=== PATIENT | female | born 1940 | race Caucasian/White ===

== ENCOUNTER 2025-01-06 17:19 | Inpatient (IN) | payer MEDICARE, MEDICAID, SELFPAY ==
[2025-01-06 17:24] VITALS: BP 198/73; PULSE 70; RESP 20; TEMP 36.7; O2SAT 95
[2025-01-06 17:26] VITALS: BMI 36.6
[2025-01-06 17:47] VITALS: PULSE 86; RESP 20; O2SAT 99; BMI 39.6
--- NOTE | 2025-01-06 17:58 | EKG_ITS ---
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: : 1940 Requested By: Trish Murray Order Number: [id number] Reading MD: Trish Murray Measurements Intervals [place] Rate: 72 P: 53 FL: 161 QRS: -26 QRSD: 94 T: 63 QT: 380 QTc: 417 Interpretive Statements SINUS RHYTHM WITH OCCASIONAL SUPRAVENTRICULAR PREMATURE COMPLEXES BORDERLINE LEFT AXIS DEVIATION [QRS AXIS < -20] MINIMAL VOLTAGE CRITERIA FOR LVH, CONSIDER NORMAL VARIANT [MEETS CRITERIA IN ONE OF: R(aVL), S(V1), R(V5), R(V5/V6)+S(V1)] Compared to ECG 04/21/2023 17:15:03 T-wave abnormality no longer present Possible ischemia no longer present /store/S0/[id number]/ecg/[id number].pdf
--- NOTE | 2025-01-06 18:13 | PD.EDAMS ---
Altered Mental Status RME/HPI General Chief Complaint: Altered Mental Status Stated Complaint: AMS Time Seen by Provider: 01/06/25 18:14 Arrival date/time: 01/06/25 17:19 RME / HPI RME / HPI narrative: Dr. Bragg?s Main ED Evaluation: 84yo female with a history of CVA, CHF, HTN, COPD, DMII BIBA from [facility] presents to the ED for a chief complaint altered mental status. Per EMS, [facility] staff found the patient to be altered at 1600 after the patient was unable to recognize family members. Patient is not on any oxygen at the facility, but was saturating 86% RA here. Patient states she does not know why she's here and does not have any complaints. Evidently, the patient was recently diagnosed with pneumonia and is currently on antibiotics. Related Data Home Medications ?Medication ?Instructions ?Recorded ?Confirmed insulin glargine 100 unit/mL 50 unit subcut HS 12/04/19 04/22/23 subcutaneous solution (Lantus U-100 Insulin) metformin 500 mg tablet 500 mg PO BID 12/04/19 04/22/23 Held on 03/10/23. Instructions: Resume on 03/24/23. After renal panel furosemide 40 mg tablet 40 mg PO QDAY 03/08/23 04/22/23 Held on 03/10/23. Instructions: Resume on 03/24/23. Resume after renal panel gabapentin 100 mg capsule 100 mg PO BID 03/08/23 04/22/23 isosorbide dinitrate 20 mg tablet 20 mg PO QID 03/08/23 04/22/23 sacubitril 49 mg-valsartan 51 mg 1 tab PO BID 03/08/23 04/22/23 tablet (Entresto) Held on 03/10/23. Instructions: Resume on 03/24/23. Resume after Renal panel spironolactone 50 mg tablet 50 mg PO QDAY 03/08/23 03/14/23 Held on 03/10/23. Instructions: Resume on 03/25/23. Please check Renal panel before resuming amlodipine 10 mg tablet 10 mg PO QDAY 03/14/23 04/22/23 hydralazine 25 mg tablet 25 mg PO TID 03/14/23 04/22/23 Previous Rx's ?Medication ?Instructions ?Recorded amoxicillin 500 mg capsule 500 mg PO BID #14 caps 04/22/23 Allergies Allergy/AdvReac Type Severity Reaction Status Date / Time No Known Allergies Allergy Verified 12/04/19 15:05 Review of Systems Review of Systems Systems Reviewed: All systems reviewed, normal except as documented ED Exam Narrative Physical exam: GENERAL APPEARANCE: alert and oriented x 4, obese, well-developed, well-nourished, no acute distress VITALS: All vitals were reviewed and the pulse ox is 95% on 2L/NC, which is abnormal according to my interpretation. HEENT: Normocephalic, atraumatic; pupils equal, round, reactive to light; EOMI; mucous membranes pink, moist; oropharynx clear NECK: Supple LUNGS: CTABL; no wheezes, no rales, no rhonchi HEART: Regular rate, regular rhythm; normal S1, S2; no murmurs ABDOMEN: non distended; normal BS; soft, no tenderness, no guarding, no rebound; no masses, no organomegaly, no hernia BACK: no CVA tenderness EXTREMITIES: atraumatic; no edema; large patches of macerated skin with evidence of chronic wounds with good healing and spots of honey-colored crusted lesions over the bilateral shins NEUROLOGIC: awake; alert and oriented x4; cranial nerves II-XII grossly intact; no focal sensory or motor deficits PSYCHIATRIC: appropriate mood and affect SKIN: warm, dry, normal color; no rashes Course Course Course Narrative: CXR is ordered for determining the etiology of AMS. 2031: Stroke alert called overhead due to CT head findings. 2035: Spoke with the patient and her family at bedside regarding test results. Any and all questions were answered. Quality Measures Suspected type of Stroke: Unknown at this time Tenecteplase given: Reason(s) TPA not given: Outside the time window not given stroke Orders Category Date Time Status Admit to Inpatient Status Routine Admission 01/06/25 21:18 Active Admit to Inpatient Status Routine Admission 01/06/25 21:36 Active Patient Condition Routine Admission 01/06/25 21:36 Ordered Bedside Blood Glucose ACHS Care 01/06/25 21:43 Active Marketing And Public Relations Manager STAT Care 01/06/25 18:19 Active Continuous Pulse Oximetry STAT Care 01/06/25 18:19 Completed EKG (ED ONLY) *Do not use* NOW Care 01/06/25 17:58 Completed Head of Bed Elevation NOW Care 01/06/25 21:40 Active Insert IV NOW Care 01/06/25 18:19 Active MRI Screening NOW Care 01/06/25 21:48 Active Miscellaneous Nursing Order NOW Care 01/06/25 21:42 Active NIH Stroke Scale now Care 01/06/25 20:32 Active NPO NOW Care 01/06/25 20:32 Active NPO NOW Care 01/06/25 21:44 Active NPO STAT Care 01/06/25 18:19 Active Neuro Check Q4H Care 01/06/25 21:40 Active Notify provider NEEDED Care 01/06/25 21:36 Active Nurse Swallow Screen X1 Care 01/06/25 21:40 Active Nurse Swallow Screen x1 Care 01/06/25 20:32 Active Obtain weight NOW Care 01/06/25 21:36 Active SCD [Sequential Compression Device] QSHIFT Care 01/06/25 21:55 Active Seizure precautions NOW Care 01/06/25 21:40 Active Strict Intake and Output Routine Care 01/06/25 18:19 Ordered Wound Care NOW Care 01/06/25 21:42 Active Consult to Neurology / Tele-Neurology Routine Cons 01/06/25 20:32 Active Referral Physical Therapy Routine Cons 01/06/25 21:40 Active Referral Speech Therapy Routine Cons 01/06/25 21:40 Active Diet Dysphagia 2- Mechanical Altered Diet 01/07/25 Breakfast Active Diet NPO (NOW) Diet 01/06/25 21:44 Active CA echo doppler complete Routine Exams 01/06/25 21:[address] angio stroke protocol Stat Exams 01/06/25 20:[address] head/brain wo con Stat Exams 01/06/25 18:24 Completed EKG (ED Only) Stat Exams 01/06/25 17:58 Draft MR head/brain wo con Stat Exams 01/06/25 Ordered XR chest 1V portable Stat Exams 01/06/25 18:18 Completed Arterial Blood Gas Stat Lab 01/06/25 19:59 Completed B-Type Natriuretic Peptide Stat Lab 01/06/25 18:30 Completed Blood Culture (Lab) Stat Lab 01/06/25 19:00 Received CBC AM DRAW Lab 01/07/25 05:00 Ordered CBC AM DRAW Lab 01/08/25 05:00 Ordered CBC AM DRAW Lab 01/09/25 05:00 Ordered CBC AM DRAW Lab 01/10/25 05:00 Ordered CBC Stat Lab 01/06/25 18:30 Completed CMP [Comprehensive Metabolic Panel] AM DRAW Lab 01/07/25 05:00 Ordered CMP [Comprehensive Metabolic Panel] AM DRAW Lab 01/08/25 05:00 Ordered CMP [Comprehensive Metabolic Panel] AM DRAW Lab 01/09/25 05:00 Ordered CMP [Comprehensive Metabolic Panel] AM DRAW Lab 01/10/25 05:00 Ordered Comprehensive Metabolic Panel Stat Lab 01/06/25 18:30 Completed Free T4 (Free Thyroxine) AM DRAW Lab 01/07/25 05:00 Ordered Hemoglobin A1C [Glycohemoglobin w (eAG)] AM DRAW Lab 01/07/25 05:00 Ordered LDH (Lactate Dehydrogenase) Stat Lab 01/06/25 18:30 Completed Lactate (Lactic Acid) Stat Lab 01/06/25 18:55 Completed Lipase Stat Lab 01/06/25 18:30 Completed Lipid Panel AM DRAW Lab 01/07/25 05:00 Ordered Magnesium AM DRAW Lab 01/07/25 05:00 Ordered Magnesium AM DRAW Lab 01/08/25 05:00 Ordered Magnesium AM DRAW Lab 01/09/25 05:00 Ordered Magnesium AM DRAW Lab 01/10/25 05:00 Ordered Magnesium Stat Lab 01/06/25 18:30 Completed Partial Thromboplastin Time Stat Lab 01/06/25 18:30 Completed Phosphorous AM DRAW Lab 01/07/25 05:00 Ordered Phosphorous AM DRAW Lab 01/08/25 05:00 Ordered Phosphorous AM DRAW Lab 01/09/25 05:00 Ordered Phosphorous AM DRAW Lab 01/10/25 05:00 Ordered Phosphorous Stat Lab 01/06/25 18:30 Completed Procalcitonin Stat Lab 01/06/25 18:30 Completed Prothrombin Time with INR Stat Lab 01/06/25 18:30 Completed Sputum Culture and Gram Stain Stat Lab 01/06/25 21:41 Ordered TSH [Thyroid Stimulating Hormone] AM DRAW Lab 01/07/25 05:00 Ordered Troponin I Stat Lab 01/06/25 18:30 Completed UA, C/S IF [Urinalysis, C/S if Indicated] Stat Lab 01/06/25 18:18 Completed Urine Culture Stat Lab 01/06/25 18:18 Received Acetaminophen Tab [Tylenol Tab] Med 01/06/25 21:36 Active 650 mg PO Q6H PRN Acetaminophen Tab [Tylenol Tab] Med 01/06/25 21:36 Active 650 mg PO Q6H PRN Albuterol/Ipratr Rt Holly [Duoneb Rt Holly] Med 01/07/25 01:00 Active 3 ml INH Q6HRRT Aspirin [Ecotrin] Med 01/07/25 09:00 Active 81 mg PO QDAY Atorvastatin Calcium [Lipitor] Med 01/07/25 21:00 Active 80 mg PO HS Azithromycin Inj [Zithromax Inj] 250 mg Med 01/07/25 21:00 Pending Sodium Chloride 0.9% 250 ml [Ns] 250 ml IV QDAY@2100 Azithromycin Inj [Zithromax Inj] 250 mg Med 01/06/25 22:15 Active Sodium Chloride 0.9% 250 ml [Ns] 250 ml IV X1 Calcium Gluconate 10% Inj Med 01/06/25 21:44 Discontinued 1 gm IV X1 ONE Dextrose 50% Syr [D50w Syringe Abboject] Med 01/06/25 21:42 Active 25 ml IV Q15MIN PRN Dextrose 50% Syr [D50w Syringe Abboject] Med 01/06/25 21:42 Active 50 ml IV Q15MIN PRN Dextrose 50% Syr [D50w Syringe Abboject] Med 01/06/25 21:44 Discontinued 50 ml IV X1 ONE Glucagon Inj Med 01/06/25 21:42 Active 1 mg IM Q15MIN PRN INSULIN LISPRO (AdmeLOG) [HumaLOG] Med 01/07/25 07:30 Active See Protocol SC ACHS Insulin Regular Med 01/06/25 21:44 Discontinued 5 unit IV X1 ONE Labetalol IV [Trandate IV] Med 01/06/25 21:36 Active 10 mg IVP Q6H PRN Ondansetron Inj [Zofran Inj] Med 01/06/25 21:36 Active 4 mg IV Q6H PRN Pantoprazole Inj [Protonix Inj] Med 01/07/25 09:00 Active 40 mg IVP QDAY Sod Polystyrene Sulfon Susp [Kayexalate Susp] Med 01/06/25 21:44 Discontinued 30 gm PO X1 ONE Sodium Chloride 0.9% 1000 ml [Ns] 1,000 ml Med 01/06/25 21:45 Active IV 60 mls/hr Sodium Chloride 0.9% 500 ml [Ns] 500 ml Med 01/06/25 18:20 Discontinued IV 999 mls/hr Sodium Chloride Rt Holly 10% [NS Rt Holly 10%] Med 01/06/25 21:36 Discontinued 5 ml INH X1 ONE cefTRIAXone [Rocephin] 1,000 mg Med 01/07/25 09:00 Active SODIUM CHLORIDE 0.9% (Popper) [NS 0.9% (Popper)] 50 ml IV QDAY cefTRIAXone [Rocephin] 1,000 mg Med 01/06/25 18:20 Discontinued SODIUM CHLORIDE 0.9% (Popper) [NS 0.9% (Popper)] 50 ml IV X1 Code Status Routine Oth 01/06/25 21:36 Ordered Oxygen Delivery NOW RT 01/06/25 18:19 Active Sputum Induction PRN RT 01/06/25 21:45 Ordered Vital Signs Vital signs: Vital Signs Temperature 98.1 F 01/06/25 17:24 Pulse Rate 70 01/06/25 17:24 Respiratory Rate 20 01/06/25 17:24 Blood Pressure 198/73 H 01/06/25 17:24 Pulse Oximetry (%) 95 01/06/25 17:24 Oxygen Delivery Method Nasal Cannula 01/06/25 17:24 Oxygen Flow Rate 2 01/06/25 17:24 Altered Mental Status MDM Narrative MDM Narrative:: Scribe Attestation: 01/06/25 - Minda Juarez am scribing for and in the presence of Dr. Bragg. Patient data External records reviewed:: 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 EKG done at 1804, NSR, rate of 72, left axis deviation, occasional PACs, generalized ST abnormalities, no acute ischemia, according to my interpretation. [facility] Report Signed Patient: BERNADETTE BALTAZAR [facility]. Record#: [id number] Birthdate: 1940 Age/Sex: 84 / F Location: SERX Attending Dr: Ordering Physician: Madi Bragg MD Date of Service: 01/06/25 Procedure(s): XR chest 1V portable Accession Number(s): [id number] cc: Victorino Vega MD; Madi Bragg MD~ Examination: AP chest single view Technique one AP portable upright chest single view Exam date and time: January 06, 2025 1836 hrs. Comparison 12/22/2022 Indications: Coughing today. Findings: No significant cardiac enlargement Ectatic thoracic aorta Mild vascular congestion. Accentuation bronchovascular markings Significant osteopenia Impression: Bronchitis pattern Dictated By: Victorino Vega MD Signed By: <Electronically signed by Victorino Vega MD in OV> 01/06/251902 [facility] Signed Patient: BERNADETTE BALATZAR [facility]. Record#: [id number] Birthdate: 1940 Age/Sex: 84 / F Location: SERX Attending Dr: Ordering Physician: Madi Bragg MD Date of Service: 01/06/25 Procedure(s): CT head/brain wo con Accession Number(s): [id number] cc: Victorino Vega MD; NO PRIMARY/FAMILY,PHYSICIAN; Madi Bragg MD~ Examination: CT brain head without contrast. 2-D sagittal coronal reconstructions Date and time of exam:January 06, 2020 04/04/1988 hours Comparison 12/22/2022 Indications: Onset altered mental status today CTDI: vol (mGy):51.4 DLP: (mGycm):980 Technique: Multiple CT axial sections of the brain have been obtained, 5 mm slice thickness. Contrast has not been administered. 2-D sagittal, coronal reconstructions have been obtained Low dose protocols were performed. One or more of the following dose reduction techniques were used; automated exposure control, adjustment of the mA and/or KV according to patient size, use of iterative reconstruction technique. Findings: No significant ventricular enlargement. Abnormal low density left temporal lobe axial image 26 Intra-axial or extra-axial hemorrhage density is not seen. No mass effect or midline shift Basal cisterns are not remarkable. Fourth ventricle is midline. Cranial vault intact. Impression: Negative for acute hemorrhage, mass effect or midline shift Findings consistent with acute infarct in the left temporal lobe, axial image 26 Recommend brain MRI MRA stroke protocol follow-up Dictated By: Victorino Vega MD Signed By: <Electronically signed by Victorino Vega MD in OV> 01/06/252005 Medications / Prescriptions Medications or Prescriptions considered but not ordered:: none Medication administrations:: Medication Administration History Acetaminophen (Acetaminophen 325 Mg Tablet) 650 mg PO Q6H PRN PRN Reason: PAIN SCALE 1-3 (mild Stop: 02/05/25 21:35 Acetaminophen (Acetaminophen 325 Mg Tablet) 650 mg PO Q6H PRN PRN Reason: Fever >100.4 Stop: 02/05/25 21:35 Albuterol/Ipratropium (Albuterol/Ipratropium (Duoneb) Rt Holly 3 Ml Nebu) 3 ml INH Q6HRRT MATT Stop: 02/06/25 00:59 Aspirin (Aspirin Ec 81 Mg Tabec) 81 mg PO QDAY MATT Stop: 02/06/25 08:59 Atorvastatin Calcium (Atorvastatin Calcium 20 Mg Tablet) 80 mg PO HS MATT Stop: 02/06/25 20:59 Dextrose (Dextrose 50%-Water Inj 50 Ml Syringe) 25 ml IV Q15MIN PRN PRN Reason: BG 50-70 responsive npo pt Stop: 02/05/25 21:41 Dextrose (Dextrose 50%-Water Inj 50 Ml Syringe) 50 ml IV Q15MIN PRN PRN Reason: BG <50 OR BG <70 & pt unresponsive Stop: 02/05/25 21:41 Glucagon (Glucagon Inj 1 Mg Vial) 1 mg IM Q15MIN PRN PRN Reason: BG <70, and no IV access Ceftriaxone Sodium 1,000 mg/ (Sodium Chloride) 50 mls @ 100 mls/hr IV QDAY [facility] Stop: 01/14/25 08:59 Azithromycin 250 mg/ Sodium (Chloride) 250 mls @ 250 mls/hr IV QDAY@2100 [facility] Stop: 01/14/25 20:59 Sodium Chloride (Ns) 1,000 mls @ 60 mls/hr IV .[id number] [facility] Stop: 02/05/25 21:44 Azithromycin 250 mg/ Sodium (Chloride) 250 mls @ 250 mls/hr IV X1 ONE Stop: 01/06/25 23:14 Insulin Human Lispro (Insulin Lispro (Admelog) 1 Unit/0.01 Ml Unit) 0 unit SC [facility]; Protocol Stop: 02/06/25 07:29 Labetalol HCl (Labetalol Inj 5 Mg/Ml Vial 20 Ml) 10 mg IVP Q6H PRN PRN Reason: BP >220/110 Stop: 02/05/25 21:35 Ondansetron HCl (Ondansetron Inj 2 Mg/Ml Inj 2 Ml) 4 mg IV Q6H PRN; Protocol PRN Reason: NAUSEA OR VOMITING Stop: 02/05/25 21:35 Pantoprazole Sodium (Pantoprazole Inj 40 Mg Vial) 40 mg IVP QDAY [facility] Stop: 02/06/25 08:59 Discontinued Medications Calcium Gluconate (Calcium Gluconate 10% Inj 1 Gm/10 Ml Vial) 1 gm IV X1 ONE Stop: 01/06/25 21:45 Dextrose (Dextrose 50%-Water Inj 50 Ml Syringe) 50 ml IV X1 ONE Stop: 01/06/25 21:45 Sodium Chloride (Ns) 500 mls @ 999 mls/hr IV .Q31M ONE Stop: 01/06/25 18:50 Last Infusion: 01/06/25 19:43 Dose: Infused Documented By: Admin: 01/06/25 19:12 Dose: 999 mls/hr Documented By: KG Ceftriaxone Sodium 1,000 mg/ (Sodium Chloride) 50 mls @ 100 mls/hr IV X1 ONE Stop: 01/06/25 18:49 Last Infusion: 01/06/25 19:39 Dose: Infused Documented By: Admin: 01/06/25 19:09 Dose: 100 mls/hr Documented By: KG Insulin Human Regular (Insulin Hum Regular 1 Unit/0.01 Ml (Per Unit)) 5 unit IV X1 ONE Stop: 01/06/25 21:45 Sodium Chloride (Sodium Chloride Rt 10% 15 Ml Nebu) 5 ml INH X1 ONE Stop: 01/06/25 21:37 Sodium Polystyrene Sulfonate (Sod Polystyrene Sulfon Susp 15 Gm/60 Ml Btl) 30 gm PO X1 ONE Stop: 01/06/25 21:45 see above Consultations Consultation(s) initiated? (list below): Yes Consultation #1 (Physician, Specialty, Details): Discussed case with [Dr. Miller] from teleneurology regarding consultation. Discussed patients ED course, exam findings, labs, and radiology results. States they do not feel like the patient is having a stroke (no tPA) and feels like the patient's symptoms may be due to something metabolic. Consider MRI. Time: 20:59 Consultation #2 (Physician, Specialty, Details): Discussed case with [Dr. Hazel] from Hospitalist service regarding admission. Discussed patients ED course, exam findings, labs, and radiology results. The Hospitalist [agrees] to accept the patient for admission. Time: 21:02 Diagnosis Differential diagnosis altered mental status: other (CVA,TIA, ICH, pneumonia, UTI) Most likely diagnosis given after review of the tests above:: see below Admission Indicated Admission indicated?: indicated Admission Request Was there a request for admission?: Yes Admission Attestation Admission request attestation: Discussed case with [] from Hospitalist service regarding admission. Discussed patients ED course, exam findings, labs, and radiology results. The Hospitalist [agrees,declines] to accept the patient for admission. Disposition Plan Disposition Plan: Admit Critical Care Time Critical Care Time Critical Care Time: Yes Total Critical Care Time (min.): 40 Attestation: The high probability of sudden, clinically significant deterioration in the patient?s condition required the highest level of my preparedness to intervene urgently. The services I provided to this patient were to treat and/or prevent clinically significant deterioration. Services included the following: chart data review, reviewing nursing notes and/or old charts, documentation time, alliances consultant collaboration regarding findings and treatment options, medication orders and management, direct patient care, vital sign assessments and ordering, interpreting and reviewing diagnostic studies and lab tests. Aggregate critical care time includes only time during which I was engaged in work directly related to the patient?s care, as described above, whether at bedside or elsewhere in the Emergency Department. It did not include time spent performing other reported procedures or the services of residents, students, nurses or physician assistants. Discharge Plan Plan Patient Disposition: Admit Acute Care w/in Hospital Disposition Comment: Accepted by Dr. Hazel Prescriptions/Referrals Prescriptions/Med Rec: No Action metformin 500 mg Tablet 500 mg PO BID insulin glargine [Lantus U-100 Insulin] 100 unit/mL Solution 50 unit subcut HS furosemide 40 mg tablet 40 mg PO QDAY Patient Comments: TAKE 1 TABLET BY MOUTH EVERY DAY FOR LEG SWELLING isosorbide dinitrate 20 mg tablet 20 mg PO QID Patient Comments: TAKE 1 TABLET BY MOUTH FOUR TIMES DAILY gabapentin 100 mg capsule 100 mg PO BID Patient Comments: TAKE 1 CAPSULE BY MOUTH TWICE DAILY spironolactone 50 mg tablet 50 mg PO QDAY Patient Comments: TAKE 1 TABLET BY MOUTH ONCE DAILY Entresto 49-51 mg tablet 1 tab PO BID Patient Comments: TAKE 1 TABLET BY MOUTH TWICE DAILY hydralazine 25 mg tablet 25 mg PO TID Patient Comments: TAKE 1 TABLET BY MOUTH THREE TIMES DAILY WITH FOOD FOR HYPERTENSION amlodipine 10 mg tablet 10 mg PO QDAY Patient Comments: TAKE 1 TABLET BY MOUTH EVERY DAY amoxicillin 500 mg capsule 500 mg PO BID Qty: 14 0RF Referrals: No Primary/Family,Physician [Primary Care Provider] - In 1 week Problem List Clinical Impression: Altered mental status, Dehydration, Hyperglycemia Patient/Caregiver Discharge Instructions Print Language: Romanian Stand Alone Forms: Rachael Award Info., Patient Portal Info Letter
--- NOTE | 2025-01-06 18:18 | XR_ITS ---
Examination: AP chest single view Technique one AP portable upright chest single view Exam date and time: January 06, 2025 1836 hrs. Comparison 12/22/2022 Indications: Coughing today. Findings: No significant cardiac enlargement Ectatic thoracic aorta Mild vascular congestion. Accentuation bronchovascular markings Significant osteopenia Impression: Bronchitis pattern
--- NOTE | 2025-01-06 18:24 | XR_ITS ---
Examination: CT brain head without contrast. 2-D sagittal coronal reconstructions Date and time of exam:January 06, 2020 04/04/1988 hours Comparison 12/22/2022 Indications: Onset altered mental status today CTDI: vol (mGy):51.4 DLP: (mGycm):980 Technique: Multiple CT axial sections of the brain have been obtained, 5 mm slice thickness. Contrast has not been administered. 2-D sagittal, coronal reconstructions have been obtained Low dose protocols were performed. One or more of the following dose reduction techniques were used; automated exposure control, adjustment of the mA and/or KV according to patient size, use of iterative reconstruction technique. Findings: No significant ventricular enlargement. Abnormal low density left temporal lobe axial image 26 Intra-axial or extra-axial hemorrhage density is not seen. No mass effect or midline shift Basal cisterns are not remarkable. Fourth ventricle is midline. Cranial vault intact. Impression: Negative for acute hemorrhage, mass effect or midline shift Findings consistent with acute infarct in the left temporal lobe, axial image 26 Recommend brain MRI MRA stroke protocol follow-up
[2025-01-06 18:39] LABS: Collection Type, Urine Clean Catch
[2025-01-06 19:00] LABS: Bacteria,Urine Rare; Bilirubin,Urine Negative (Negative); Blood,Urine Negative (Negative); Clarity,Urine Clear (Clear/Hazy); Color,Urine Colorless (Lt Yel-Yel); Culture Indicated,Urine Not Indicated; Glucose, Urine Negative (Negative); Ketones,Urine Negative (Negative); Leukocyte Esterase,Urine Negative (Negative); Nitrite,Urine Negative (Negative); Protein,Urine Negative (Neg - Trace); RBC,Urine 1 /hpf (0-3); Specific Gravity,Urine 1.008 (1.001-1.035); Squamous Epithelial Cell,Urine < 1 /hpf (0-5); Urobilinogen,Urine Negative mg/dL (0.0-1.0); WBC,Urine < 1 /hpf (0-5)
[2025-01-06 19:04] LABS: Lactate (Lactic Acid) 1.3 mMol/L (0.4-2.0)
[2025-01-06 19:07] LABS: Basophils # (Auto) 0.1 Thou/mm3 (0.0-0.2); Basophils % (Auto) 0 % (0-2.5); Eosinophils % (Auto) 0 % (0-10); Hematocrit 39.6 % (36.0-46.0); Hemoglobin 13.2 g/dL (12.0-16.0); Immature Granulocytes % (Auto) 1 % (0-0); Immature Granulocytes Auto 0.19 Thou/mm3 (0.00-0.00); Lymphocytes # (Auto) 1.1 Thou/mm3 (1.0-4.8); Lymphocytes % (Auto) 7 % (10-50); Mean Corpuscular HGB Conc 33.3 g/dl (31.0-37.0); Mean Corpuscular Hemoglobin 29.7 pg (25.0-35.0); Mean Corpuscular Volume 89 fL (80-100); Monocytes # (Auto) 0.1 Thou/mm3 (0.0-0.8); Monocytes % (Auto) 1 % (0-12); Neutrophils # (Auto) 14.2 Thou/mm3 (1.8-7.7); Neutrophils % (Auto) 90 % (37-80); Nucleated Red Blood Cell % 0 /100 WBC (0); Platelet Count 323 Thou/mm3 (140-440); RDW Standard Deviation 42.5 fL (36.4-46.3); Red Blood Count 4.44 Miln/mm3 (4.00-5.20); White Blood Count 15.7 Thou/mm3 (3.6-11.0)
[2025-01-06] MEDS: cefTRIAXone 1,000 MG in SODIUM CHLORIDE 0.9% (Popper) 50 ML 100 MG IV (19:09)
[2025-01-06] MEDS: SODIUM CHLORIDE 0.9% 500 ML 500 ML 999 ML IV (19:12)
--- NOTE | 2025-01-06 19:12 | PC.NURSE ---
Pt to Ct scan via [facility], [place] at this time.
[2025-01-06 19:23] LABS: Partial Thromboplastin Time 21.3 Seconds (22.0-36.0); Prothrombin Time 11.4 Seconds (9.0-12.2)
[2025-01-06 19:33] LABS: Alanine Aminotransferase 11 U/L (10-49); Albumin, Serum 4.3 gm/dL (3.4-4.8); Albumin/Globulin Ratio 1.2 (1.2-2.2); Alkaline Phosphatase 99 U/L (46-116); Anion Gap 11 (7-16); Aspartate Amino Transferase 19 U/L (0-34); BUN/Creatinine Ratio 23 Ratio (12-20); Bilirubin,Total 0.4 mg/dL (0.3-1.2); Blood Urea Nitrogen 27 mg/dL (9-23); Carbon Dioxide 22.9 mMol/L (20.0-31.0); Chloride 102 mMol/L (98-107); Creatinine (Component) 1.2 mg/dL (0.6-1.3); Estimated Creatinine Clearance 38.1 mL/min (>60); Globulin 3.7 gm/dL (2.3-3.5); Glucose 195 mg/dL (74-106); LDH (Lactate Dehydrogenase) 253 U/L (120-246); Lipase 27 U/L (12-53); Magnesium 1.6 mg/dL (1.6-2.6); Osmolality,Calculated 282 (275-295); Potassium 5.4 mMol/L (3.4-5.1); Procalcitonin 0.07 ng/ml (0.0-0.49); Sodium 136 mMol/L (136-145); Troponin I < 0.002 ng/mL (0.0-0.045); eGFR 45 See Note
[2025-01-06 19:55] LABS: B-Type Natriuretic Peptide 52 pg/mL (0-100)
[2025-01-06 20:03] LABS: Allen Test Performed/OK; Base Excess -1 (-3-3); HCO3 24 mEq/L (20-26); Inspired Oxygen, FIO2 21 %; O2 Saturation 99 % (91-98); PCO2 39 mmHg (32.0-48.0); PO2 108 mmHg (83-108); Puncture Site Right Radial
[2025-01-06 20:19] VITALS: BP 180/83; PULSE 65; RESP 19; O2SAT 93
--- NOTE | 2025-01-06 20:34 | PC.NURSE ---
stroke consult Case # [id number]?
--- NOTE | 2025-01-06 20:35 | PC.NURSE ---
Rojelio dent cart to the bedside and Dr. Bragg at the bedside talking to pt and family.
--- NOTE | 2025-01-06 20:59 | PD.TNEURO ---
Tele Neuro Consultation Consultation Date 01/06/25 Most Recent Vital Signs Last Vital Signs Temp 98.1 F 01/06/25 17:24 Pulse 65 01/06/25 20:19 Resp 19 01/06/25 20:19 BP 180/83 H 01/06/25 20:19 Pulse Ox 93 L 01/06/25 20:19 O2 Del Method Nasal Cannula 01/06/25 20:19 O2 Flow Rate 5 01/06/25 20:19 Laboratory-Coagulation Panel PT 11.4 Seconds (9.0-12.2) 01/06/25 18:30 INR 1.0 (0.9-1.3) 01/06/25 18:30 APTT 21.3 Seconds (22.0-36.0) L 01/06/25 18:30 Consultation Narrative [facility] Tele[facility]urology Consult Services Patient Name:???Noris Nunez Date of :???1940 Identification Number:??? 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 Also discussed the case with the son at the bedside. White cell count is more than 15. She has been started on antibiotics few days ago. Confusion reported by the family appears to be delirium due to metabolic encephalopathy. I do not see any new focal deficits. Plain CT of the head did not show any new bleed. I would recommend admitting her for MRI of the head, EEG and metabolic workup. Will recommend starting her on thiamine replacement, checking B12, folate level, urine analysis and ammonia levels. Rest of the workup would be as per in-house team Our recommendations are outlined below. Recommendations: ? Stroke/Telemetry Floor ? Neuro Checks ? Bedside Swallow Eval ? DVT Prophylaxis ? IV Fluids, Normal Saline ? Head of Bed 30 Degrees ? Euglycemia and Avoid Hyperthermia (PRN Acetaminophen) ? Aspirin per rectum ? Antihypertensives PRN if Blood pressure is greater than 220/120 or there is a concern for End organ damage/contraindications for permissive HTN. If blood pressure is greater than 220/120 give labetalol PO or IV or Vasotec IV with a goal of 15% reduction in BP during the first 24 hours. Sign Out: ? Discussed with Emergency Department Provider Advanced Imaging: Advanced Imaging Deferred because: Poor functional status at baseline, a greater risk than benefit with acute intervention Metrics: Last Known Well: Unknown Dispatch Time: 01/06/2025 20:34:41 Arrival Time: 01/06/2025 17:19:00 Initial Response Time: 01/06/2025 20:36:27Symptoms: Mental status changes. Initial patient interaction: 01/06/2025 20:46:37 NIHSS Assessment Completed: 01/06/2025 20:55:22Patient is not a candidate for Thrombolytic. Thrombolytic Medical Decision: 01/06/2025 20:55:24Patient was not deemed candidate for Thrombolytic because of following reasons: LKW outside 4.[address] head showed no acute hemorrhage or acute core infarct. Primary Provider Notified of Diagnostic Impression and Management Plan on: 01/06/2025 20:58:53 History of Present Illness:Patient is a 84 year old Female. Patient was brought by EMS for symptoms of Mental status changes. Pleasant 84-year-old female with history of left hemiparesis, who is bedbound/wheelchair-bound at the shelter due to dense left-sided weakness was brought in because of some confusion. According to the son, this started sometime today. Patient has been on antibiotic for respiratory infection since the weekend. Patient was noted to be confused. She is moving her right side and appears to be at her baseline. She denies any headaches. No seizures were reported Past Medical History: ?Hypertension ?Hyperlipidemia ?Stroke Medications: No Anticoagulant use? No Antiplatelet use Reviewed EMR for current medications Allergies:? Reviewed Social History: Smoking: No Alcohol Use: No Drug Use: No Family History: There is no family history of premature cerebrovascular disease pertinent to this consultation ROS : 14 Points Review of Systems was performed and was negative except mentioned in HPI. Past Surgical History: There Is No Surgical History Contributory To Today?s Visit Examination: BP(184/83),?Pulse(70), 1A: Level of Consciousness - Alert; keenly responsive?+ 0 1B: Ask Month and Age - 1 Question Right?+ 1 1C: Blink Eyes & Squeeze Hands - Performs Both Tasks?+ 0 2: Test Horizontal Extraocular Movements - Normal?+ 0 3: Test Visual Monroy - No Visual Loss?+ 0 4: Test Facial Palsy (Use Grimace if Obtunded) - Normal symmetry?+ 0 5A: Test Left Arm Motor Drift - No Movement?+ 4 5B: Test Right Arm Motor Drift - No Drift for 10 Seconds?+ 0 6A: Test Left Leg Motor Drift - No Movement?+ 4 6B: Test Right Leg Motor Drift - No Drift for 5 Seconds?+ 0 7: Test Limb Ataxia (FNF/Heel-Richardson) - No Ataxia?+ 0 8: Test Sensation - Normal; No sensory loss?+ 0 9: Test Language/Aphasia - Normal; No aphasia?+ 0 10: Test Dysarthria - Normal?+ 0 11: Test Extinction/Inattention - No abnormality?+ 0 NIHSS Score:?9 NIHSS Free Text :?Appears to have dense left-sided weakness which according to the son and the patient is chronic. Pre-Morbid Modified Jay Scale:4 Points = Moderately severe disability; unable to walk and attend to bodily needs without assistance Spoke with :?Dr Yemi Barraza This consult was conducted in real time using interactive audio and video technology. Patient was informed of the technology being used for this visit and agreed to proceed. Patient located in hospital and provider located at home/office setting. Patient is being evaluated for possible acute neurologic impairment and high probability of imminent or life-threatening deterioration. I spent total of 40 minutes providing care to this patient, including time for face to face visit via telemedicine, review of medical records, imaging studies and discussion of findings with providers, the patient and/or family. Dr Bret Miller [facility] For Inpatient follow-up with [facility] physician please call [facility] at . As we are not an outpatient service for any post hospital discharge needs please contact the hospital for assistance. If you have any questions for the [facility] physicians or need to reconsult for clinical or diagnostic changes please contact us via [facility] at .
[2025-01-06 21:00] VITALS: BP 185/96; PULSE 90; RESP 22; O2SAT 93
--- NOTE | 2025-01-06 21:19 | PD.EVENT ---
Documentation for date of: 01/06/25 Event Note Event Note: An 84-year-old female presented to the ER with the chief complaint of altered mental status. The patient, who has a history of left hemiparesis and is bedbound/wheelchair-bound at a correction due to dense left-sided weakness, was brought in by EMS after being noted to be confused. According to the patient?s son, the confusion began sometime today. The patient has been on antibiotics for a respiratory infection since the weekend. She was unable to recognize family members at 1600 per correction staff. Upon arrival, she was moving her right side and appeared to be at her baseline. She denied headaches, and no seizures were reported. She was found to have an oxygen saturation of 86% on room air in the ED but is not on supplemental oxygen at her facility. The patient has a history of cerebrovascular accident, congestive heart failure, hypertension, chronic obstructive pulmonary disease, and type 2 diabetes mellitus. She resides at [facility]. She has been recently diagnosed with pneumonia and is currently on antibiotics. In the Emergency Department, the patient was initially evaluated with vital signs recorded as temperature 98.1?F, heart rate 70 bpm, respiratory rate 20, and blood pressure 198/73 mmHg. Laboratory results revealed WBC 15.7, hemoglobin 13.2, platelets 323, sodium 136, potassium 5.4, BUN 27, creatinine 1.2, glucose 195, and procalcitonin 0.07. Urinalysis showed WBC <1. Chest X-ray demonstrated a bronchitis pattern. EKG showed sinus rhythm. CT findings were consistent with an acute infarct in the left temporal lobe. A stroke alert was called. Neurology evaluated the patient and determined that the confusion appeared to be delirium due to metabolic encephalopathy. No new focal deficits were noted, and a plain CT head did not show any new bleed. Recommendations included admission for further evaluation with MRI of the head, EEG, metabolic workup, thiamine replacement, and additional laboratory tests including B12, folate, and ammonia levels.
--- NOTE | 2025-01-06 21:24 | PC.NURSE ---
Admitting resident at the bedside.
--- NOTE | 2025-01-06 21:36 | PD.RESHP ---
Documentation for date of: 01/06/25 [facility] History of Present Illness History of present illness: This is an 84-year-old female with PMHx of CVA 2021 with left hemiparesis, bedbound/wheelchair-bound, COPD, T2DM, CHF unspecified, HTN, recent diagnosis of URI, presenting from SNF with confusion and altered mental status. According to SNF and her son at bedside, the confusion started earlier today where she was unable to recognize family members, around 1600. He was recently started on AZITHROMYCIN and STEROIDS for upper respiratory infection. Completed 2 days of therapy. She states she has been feeling weak, lethargic, and subjective fever over the last few days. She has persistent cough with aranda mucus. She has a history of COPD for which she is on oxygen at night. 2001. She had a hemorrhagic CVA with residual left hemiparesis and left-sided facial droop. She is currently wheelchair-bound. Upon arrival at the hospital, she was moving her right side and appeared to be at her baseline. Denies fall, trauma, headaches, chills, seizures, chest pain, shortness of breath, abdominal pain, N/V/D/C, dysuria, frequency or urgency, or abnormal bleed, ED COURSE: Presented as a stroke alert. Afebrile, BP 198/73, HR 70, RR 22, satting 93% on 5 L. WBC 15.7 with left shift, otherwise CBC relatively benign. APTT 21.3, otherwise normal coag panel. Blood gases normal. Potassium 5.4, GLUCOSE 195, LD 253, otherwise chemistry within normal limit including LA and troponin and BNP. UA negative for UTI. EKG sinus rhythm with occasional premature ventricular contractions, no acute ST changes. CXR showed bronchitis pattern. Head CT showed acute infarct of left temporal lobe. Teleneurology was consulted. She was admitted for stroke workup and pneumonia. PMHx: CVA 22, residual left-sided deficit, COPD, T2DM, CHF, HTN PSHx: None relevant. MEDS: ENTRESTO BID, ALDACTONE 25 mg daily, ISOSORBIDE 20 mg BID, soft, glargine 15 units HS, NORCO 5?3 25 q.6h. PRN, GABAPENTIN 100 mg BID, ALBUTEROL inhaler as needed, VITAMIN D daily, VITAMIN C daily, multivitamins daily, zinc daily, FERROUS SULFATE daily, PROZAC 30 mg daily, BENADRYL PRN, TYLENOL PRN. ALLERGIES: NKA FHx: None relevant SH: Denies alcohol, current tobacco, or drug use. Exam Vital Signs Temp Pulse Resp BP Pulse Ox O2 Del Method O2 Flow Rate 98.1 F 90 22 H 185/96 H 93 L Nasal Cannula 5 01/06/25 17:24 01/06/25 21:00 01/06/25 21:00 01/06/25 21:00 01/06/25 21:00 01/06/25 21:00 01/06/25 21:00 Narrative Exam GENERAL Frail-appearing elderly female, on nasal cannula, satting mid 90s. HEENT NCAT.?LAZARO. Oral mucosa is moist. Patent Nares NECK Supple, nontender, no thyromegaly, no meningismus, no JVD, no step offs CHEST RRR, no m/g/r Coarse breath sounds bilaterally, rhonchi bilaterally, no wheezing. Atraumatic, nontender, no crepitus, symmetrical expansion. ABDOMEN Soft, flat, nontender. No guarding/rebound tenderness/masses. Bowel sounds presents EXTREMITIES Nontender, no cyanosis. Trace edema bilateral lower extremity Chronic venous stasis, large, nonpurulent, nonbleeding skin of bilateral lower extremities SKIN Warm and dry, no jaundice/rashes. NEUROMUSCULAR No lumbar or midline, no CVA, no paraspinal muscle spasm or tenderness. Left facial droop (chronic), sensation intact throughout bilaterally, substantial left-sided weakness in upper and lower extremity (chronic). AYOUB x4, CN II-XII grossly intact, other than above findings. Fluent speech. PSYCHIATRY Normal mood and affect, cooperative, no SI or HI or hallucinations. Results: Labs 01/06/25 18:30 01/06/25 18:30 Labs: Short CBC 01/06/25 Range/Units 18:30 WBC 15.7 H (3.6-11.0) Thou/mm3 Hgb 13.2 (12.0-16.0) g/dL Hct 39.6 (36.0-46.0) % Plt Count 323 (140-440) Thou/mm3 BMP 01/06/25 18:30 Sodium 136 Potassium 5.4 H Chloride 102 Carbon Dioxide 22.9 BUN 27 H Creatinine 1.2 Glucose 195 H Calcium 10.0 Cardiac Enzymes 01/06/25 Range/Units 18:30 Troponin I < 0.002 (0.0-0.045) ng/mL Liver Function 01/06/25 Range/Units 18:30 Total Bilirubin 0.4 (0.3-1.2) mg/dL AST 19 (0-34) U/L ALT 11 (10-49) U/L Alkaline Phosphatase 99 (46-116) U/L Albumin 4.3 (3.4-4.8) gm/dL Urine 01/06/25 Range/Units 18:18 Urine Color Colorless A (Lt Yel-Yel) Urine Clarity Clear (Clear/Hazy) Urine pH 6.0 (5.0-7.0) Ur Specific [place] 1.008 (1.001-1.035) Urine Protein Negative (Neg - Trace) Urine Glucose (UA) Negative (Negative) ABG Interpretation ABG results: 01/06/25 19:59 ABG pH 7.40 ABG pCO2 39 ABG pO2 108 ABG HCO3 24 ABG O2 Saturation 99 H ABG Base Excess -1 Quality Measures Quality Measures stroke Suspected type of Stroke: Unknown at this time Tenecteplase given: Reason(s) Tenecteplase not given: Outside the time window not given Rehab services: PT evaluation ordered and Speech Language Pathology eval ordered VTE Prophylaxis: mechanical Antithrombotic by day 2:: ordered Statin ordered: >75 y/o moderate or high intensity dose Anticoagulation ordered for A-fib or flutter (current or hx): not indicated Advance care planning discussed with:: patient and child Medications Home Medications and Allergies Home Medications ?Medication ?Instructions ?Recorded ?Confirmed ?Type insulin glargine 100 unit/mL 50 unit subcut HS 12/04/19 04/22/23 History subcutaneous solution (Lantus U-100 Insulin) metformin 500 mg tablet 500 mg PO BID 12/04/19 04/22/23 History Held on 03/10/23. Instructions: Resume on 03/24/23. After renal panel furosemide 40 mg tablet 40 mg PO QDAY 03/08/23 04/22/23 History Held on 03/10/23. Instructions: Resume on 03/24/23. Resume after renal panel gabapentin 100 mg capsule 100 mg PO BID 03/08/23 04/22/23 History isosorbide dinitrate 20 mg tablet 20 mg PO QID 03/08/23 04/22/23 History sacubitril 49 mg-valsartan 51 mg 1 tab PO BID 03/08/23 04/22/23 History tablet (Entresto) Held on 03/10/23. Instructions: Resume on 03/24/23. Resume after Renal panel spironolactone 50 mg tablet 50 mg PO QDAY 03/08/23 03/14/23 History Held on 03/10/23. Instructions: Resume on 03/25/23. Please check Renal panel before resuming amlodipine 10 mg tablet 10 mg PO QDAY 03/14/23 04/22/23 History hydralazine 25 mg tablet 25 mg PO TID 03/14/23 04/22/23 History Allergies Allergy/AdvReac Type Severity Reaction Status Date / Time No Known Allergies Allergy Verified 12/04/19 15:05 Visit Medications Discontinued Medications Sodium Chloride (Ns) 500 mls @ 999 mls/hr IV .Q31M ONE Stop: 01/06/25 18:50 Last Infusion: 01/06/25 19:43 Dose: Infused Ceftriaxone Sodium 1,000 mg/ (Sodium Chloride) 50 mls @ 100 mls/hr IV X1 ONE Stop: 01/06/25 18:49 Last Infusion: 01/06/25 19:39 Dose: Infused Assessment & Plan Plan In summary: 84-year-old female with PMHx of hemorrhagic CVA with left-sided deficit 2021, COPD on HS oxygen, HTN, T2DM, presenting with altered mental status. Admitted for acute encephalopathy in settings of stroke and upper respiratory infection. Appreciate recommendation from neurology team. Acute encephalopathy Acute L temporal lobe infarct Hemorrhagic CVA 2021, left-sided deficit Coming from SNF, found altered this a.m., unable to recognize family members. Hx hemorrhagic CVA 2021 with residual left-sided weakness and facial droop. Neuroexam demonstrated residual findings above, no S/S of right-sided deficits or acute facial asymmetry, speech abnormality, or visual acuity changes. CT head showed left upper lobe infarct. EKG sinus with occasional SVC. Teleneuro started, recommendations as below. ? Seizure precaution ? Head elevation >30 degrees ? Permissive hypertension ? Continue LABETALOL 10 mg for BP >220/110 ? Continue TYLENOL for fever ? Continue ASPIRIN 81 mg daily ? Pending bedside swallow eval ? Pending speech evaluation ? Pending physical therapy evaluation ? Pending lipid panel, TSH, A1c, echocardiogram ? Pending neurology recommendations ? Pending MRI brain Bronchitis 3/4 SIRS positive COPD Had upper respiratory infection at SNF, has been on AZITHROMYCIN and PREDNISONE (2 days). As persistent cough with aranda sputum, shortness of breath, coarse breath sounds and rhonchi on exam. Met 3/4 SIRS criteria with leukocytosis, tachycardia, tachypnea. Less likely sepsis, no signs of EOD. CXR showed bronchitis. Currently on 5 L NS, satting in mid 90s. Low concern for COPD exacerbation, no wheezing on exam, however will continue with PREDNISONE. ? Continue CEFTRIAXONE and AZITHROMYCIN (01/06 to present) ? Continue DuoNebs q.6h. ? Avoid systemic STEROIDS in settings of acute stroke ? Pending cultures: blood, sputum Hyperkalemia Potassium 5.4, no prominent T waves on EKG. Given CALCIUM GLUCONATE, INSULIN 5 mg, and KAYEXALATE. ? Trending potassium CHF Per SNF, no recent ECHO on file. Home medications include ENTRESTO BID, ALDACTONE 25 mg daily. ? Pending echocardiogram ? Resume ENTRESTO and ALDACTONE when able Anginal chest pain Currently denies chest pain. She is on scheduled ISOSORBIDE QID at SNF. ? Continue home ISOSORBIDE 20 mg QID for chest pain T2DM GLUCOSE 195. No recent A1c on file. Takes INSULIN GLARGINE 15 units HS daily. ? INSULIN sliding scale ? Accu-Cheks ? Pending A1c HTN Allowing permissive hypertension as above. ? Restart antihypertensives when able Collin LE lesions Chronic venous stasis Diabetic neuropathy Home meds include GABAPENTIN 100 mg BID NORCO 5?325 q.6h. PRN. Has large nonpurulent lesions and chronic venous status over bilateral shins. ? Hold GABAPENTIN and NORCO in settings of AMS ? Wound care Hx bilateral DVT Per SNF, occurred greater than 1 year ago. ? Continue with SCDs ? Consider HEPARIN after 24 hours Health maintenance Diet: NPO GI prophylaxis: PROTONIX DVT prophylaxis: SCD Antibiotics: CEFTRIAXONE, AZITHROMYCIN CODE STATUS: Full code Disposition: Stroke workup. Patient case was discussed with attending, Rafita Hazel MD. Harpal Carter DO PGYI Attending Provider Attestation/Addendum Pt was evaluated and plan formulated together with the housestaff team. I have reviewed the residents note above and agree with most of its content. Please refer to the residents note for additional details.
[2025-01-06] MEDS: DEXTROSE 50%-WATER INJ 50 ML SYRINGE IV (22:54)
[2025-01-06] MEDS: INSULIN HUM REGULAR 1 UNIT/0.01 ML (PER UNIT) 5 UNIT IV (22:55)
[2025-01-06] MEDS: CALCIUM GLUCONATE 10% INJ 1 GM/10 ML VIAL IV (22:55)
[2025-01-06] MEDS: SOD POLYSTYRENE SULFON SUSP 15 GM/60 ML BTL 30 GM PO (22:56)
[2025-01-06 23:00] VITALS: BP 222/113; PULSE 90; RESP 21; O2SAT 94
[2025-01-06] MEDS: AZITHROMYCIN INJ 250 MG in SODIUM CHLORIDE 0.9% 250 ML 250 ML IV (23:01)
[2025-01-06 23:21] VITALS: BP 222/113; PULSE 92
[2025-01-06] MEDS: LABETALOL INJ 5 MG/ML VIAL 20 ML 10 MG IVP (23:21)
--- NOTE | 2025-01-06 23:54 | PC.RT ---
Sputum and gram stain. Pt has not been able to provide a sample. Pt feeling nauseous and does not want to take the sputum induction treatment. Will monitor
--- NOTE | 2025-01-06 23:57 | PC.NURSE ---
Pt to CT scan via jose carlos kelly this time.
[2025-01-07] VITALS (16 sets, daily range): BP systolic 118–183; BP diastolic 54–106; PULSE 51–97; RESP 15–22; TEMP 35.9–36.7; O2SAT 93–99; BMI 40.0; BMI 12.0
--- NOTE | 2025-01-07 | XR_ITS ---
Examination: MRI brain without intravenous contrast. Date and time of exam: January 07, 2025 1243 hours INDICATIONS: Onset altered mental status beginning January 06, 2025 6 Technique: Multiple axial and sagittal images of the brain obtained. Siemens high-resolution 1.5 Letty short bore scanners utilized. Sagittal sections, T1-weighted, TR 500, TE 14, are performed. Axial sections proton-density and T2-weighted have been obtained. Inversion recovery axial images, TR 9, 260, TE 111, TI 2500. Diffusion weighted images, axial sections, TR 4800, TE 128, B value 1000 Axial sections, ADC map, TR 4800, TE 128 Findings: Enlargement of the sella turcica is not present. The optic chiasm and infundibular are not remarkable. Prepontine and interpeduncular cisterns are not enlarged. There is no localized enlargement of the medulla or juliette. Fourth ventricle and cerebellar tonsils appear normal in position. No subacute area of hemorrhage density is seen. Mass in the cerebellopontine angle region is not evident. Globes symmetrical. Orbital musculature including medial lateral rectus muscles do not exhibit abnormality. Diffusion-weighted images demonstrate large focus restricted diffusion posterior left temporal lobe left occipital lobe Increased white matter signal prominent Mass effect upon the ventricular system is not identified. Impression: Large acute infarct left temporal left occipital lobe
--- NOTE | 2025-01-07 00:20 | PC.NURSE ---
Pt returned from CT, informed by library technical assistant that IV has infiltrated. Called resident Dr. Clay, informed him of infiltration and that pt has already been poked about 8 times by various nurses. Resident asked me to try again.
--- NOTE | 2025-01-07 00:42 | PC.NURSE ---
Attempted IV insertion x2 for CT angio without success - called resident to inform him - Dr Pb moser, spoke to other resident who states he will let him know.
[2025-01-07] MEDS: ALBUTEROL/IPRATROPIUM (Duoneb) RT SOL 3 ML NEBU INH ×4 (01:21→19:30)
[2025-01-07] MEDS: SODIUM CHLORIDE RT 10% 15 ML NEBU 5 ML INH (01:21)
[2025-01-07 01:49] LABS: Ammonia 22 uMol/L (11-32)
[2025-01-07 05:21] LABS: Basophils # (Auto) 0.1 Thou/mm3 (0.0-0.2); Basophils % (Auto) 0 % (0-2.5); Eosinophils % (Auto) 0 % (0-10); Hematocrit 36.9 % (36.0-46.0); Hemoglobin 12.2 g/dL (12.0-16.0); Immature Granulocytes % (Auto) 1 % (0-0); Immature Granulocytes Auto 0.11 Thou/mm3 (0.00-0.00); Lymphocytes # (Auto) 1.8 Thou/mm3 (1.0-4.8); Lymphocytes % (Auto) 11 % (10-50); Mean Corpuscular HGB Conc 33.1 g/dl (31.0-37.0); Mean Corpuscular Hemoglobin 29.8 pg (25.0-35.0); Mean Corpuscular Volume 90 fL (80-100); Monocytes # (Auto) 0.7 Thou/mm3 (0.0-0.8); Monocytes % (Auto) 4 % (0-12); Neutrophils # (Auto) 14.2 Thou/mm3 (1.8-7.7); Neutrophils % (Auto) 84 % (37-80); Nucleated Red Blood Cell % 0 /100 WBC (0); Platelet Count 319 Thou/mm3 (140-440); RDW Standard Deviation 42.6 fL (36.4-46.3); White Blood Count 16.9 Thou/mm3 (3.6-11.0)
[2025-01-07] MEDS: ISOSORBIDE DINITRATE 10 MG TABLET 20 MG PO (05:42)
[2025-01-07 06:08] LABS: Glucose Estimated Average 134 mg/dL (80-131); Hemoglobin A1C 6.3 % Hgb (4.8-6.0)
[2025-01-07 06:20] LABS: Alanine Aminotransferase < 7 U/L (10-49); Albumin/Globulin Ratio 1.2 (1.2-2.2); Alkaline Phosphatase 94 U/L (46-116); Anion Gap 13 (7-16); Aspartate Amino Transferase 11 U/L (0-34); BUN/Creatinine Ratio 22 Ratio (12-20); Bilirubin,Total 0.2 mg/dL (0.3-1.2); Blood Urea Nitrogen 24 mg/dL (9-23); Calcium 10.3 mg/dL (8.3-10.6); Calcium (Corrected) 10.3 mg/dL (8.5-10.1); Carbon Dioxide 22.7 mMol/L (20.0-31.0); Cardiac Risk Estimate 3.5 RATIO (3.7-5.6); Chloride 105 mMol/L (98-107); Cholesterol 120 mg/dL (132-200); Creatinine (Component) 1.1 mg/dL (0.6-1.3); Estimated Creatinine Clearance 41.8 mL/min (>60); Free T4 (Free Thyroxine) 1.14 ng/dL (0.89-1.76); Globulin 3.4 gm/dL (2.3-3.5); Glucose 186 mg/dL (74-106); HDL Cholesterol 34 mg/dL (40-60); LDL Cholesterol,Calculated 62 mg/dL (0-130); Magnesium 1.6 mg/dL (1.6-2.6); Osmolality,Calculated 290 (275-295); Phosphorous 3.2 mg/dL (2.4-5.1); Potassium 3.8 mMol/L (3.4-5.1); Sodium 141 mMol/L (136-145); Thyroid Stimulating Hormone 0.56 uIU/mL (0.55-4.78); Total Protein 7.4 gm/dL (5.7-8.2); Triglycerides 120 mg/dL (30-150); eGFR 50 See Note
[2025-01-07 06:32] LABS: Vitamin B12 563 pg/mL (211-911)
[2025-01-07] MEDS: INSULIN LISPRO (AdmeLOG) 1 UNIT/0.01 ML UNIT SC ×3 (07:46→21:31)
[2025-01-07] MEDS: Magnesium Sulfate 4 GM Ivpb 4 GM/50 ML BAG IV (09:23)
[2025-01-07] MEDS: cefTRIAXone 1,000 MG in SODIUM CHLORIDE 0.9% (Popper) 50 ML 100 MG IV (09:23)
[2025-01-07] MEDS: THIAMINE INJ 100 MG/ML VIAL 2 ML IVP (09:24)
[2025-01-07] MEDS: PANTOPRAZOLE INJ 40 MG VIAL IVP (09:24)
[2025-01-07] MEDS: ASPIRIN EC 81 MG TABEC PO (09:24)
--- NOTE | 2025-01-07 09:43 | PCS.ST ---
Swallow Evaluation completed. See report for details. Downgrade diet to Dysphagia 1. ST will follow
--- NOTE | 2025-01-07 09:53 | PC.SS ---
Initial assessment: this is 84 year old female comes from [facility]. The patient is a prison resident, per son Marcus. The patient is bed bound and son reports the patient lost mobility on her left side. Patient is diabetic and follows for wound care. The patient utilizes oxygen at night per son. Patient followed by Dr. Dakota Fischer for primary care. Patient to return to [facility] upon discharge. Patient's son, Marcus Nunez is the alternate point of contact in case of an emergency. D/c plan: [facility] Next of kin: sonMarcus
--- NOTE | 2025-01-07 13:04 | ESPR_ITS ---
<Statement entered by Chris Chao MD - 01/07/25 15:55> I discussed with and supervised the internal wholesaler physician involved in the care of this patient. Patient assessment and plan was discussed with entire medicine team, including my attending. I agree with the assessment and plan as documented by internal wholesaler doctor. Patient care was discussed with my attending physician Dr. Monet Chao, PGY-2 Documentation for date of: 01/07/25 Subjective Subjective Interval history: 01/07/2025: Patient is an overnight admission as noted in HPI. Seen and examined in hospital bed, awake and reports no concerning symptoms at this time. On examination, patient has left-sided hemiparesis but is able to move left lower extremity; moreover, right upper and lower extremities muscle strength and sensations are intact. Patient CT head was positive for left temporal lobe infarct, pending MRI/EEG/TTE with bubble study. Neurology has been consulted, appreciate recommendations. Patient also had episode of bradycardia with heart rate in the 48 but was not symptomatic; will continue to monitor for any acute changes. Patient's blood pressure has been decreasing, likely due to isosorbide which was scheduled on admission. Isosorbide was held; moreover, will continue monitor blood pressure. Exam Vital Signs Temp Pulse Resp BP Pulse Ox O2 Del Method O2 Flow Rate 96.8 F 60 19 118/54 L 99 Nasal Cannula 2 01/07/25 12:00 01/07/25 12:00 01/07/25 12:00 01/07/25 12:00 01/07/25 12:00 01/07/25 12:00 01/07/25 12:00 Narrative Exam Physical Exam: GENERAL: Awake, answers questions with 1-2 words, appears stated age HEENT: NC/AT. Moist mucosa. PERRLA/EOMI. Left facial droop noted. CARDIO: Heart RRR, no obvious murmurs, no JVD. PULM: No coughing or visible SOB. Lungs CTA B/L. GI: Abdomen soft, NT/ND, +BS. SKIN/MSK/EXT: Reticular, erythematous and blachable rash noted on b/l shins. No wounds/discoloration/edema/amputations. +Pedal pulses present B/L. Moves extremities x4. NEURO: Oriented x1 (person), CN 2-12 intact, RUE/RLE 4/5 strength, LUE 1/5 LLE 2/5 muscle strength, sensations intact R>L Objective Labs 01/08/25 05:34 01/08/25 05:34 Labs: Laboratory Results - last 24 hr 01/06/25 01/06/25 01/06/25 18:18 18:30 18:55 WBC 15.7 H RBC 4.44 Hgb 13.2 Hct 39.6 MCV 89 MCH 29.7 MCHC 33.3 RDW Std Deviation 42.5 Plt Count 323 Neut % (Auto) 90 H Lymph % (Auto) 7 L [place] % (Auto) 1 Eos % (Auto) 0 Baso % (Auto) 0 Neut # (Auto) 14.2 H Lymph # (Auto) 1.1 [place] # (Auto) 0.1 Eos # (Auto) 0.0 Baso # (Auto) 0.1 Immature Gran # (Auto) 0.19 H Absolute Nucleated RBC 0.00 Immature Gran % 1 H Nucleated RBC % 0 PT 11.4 INR 1.0 APTT 21.3 L Puncture Site ABG pH ABG pCO2 ABG pO2 ABG HCO3 ABG O2 Saturation ABG Base Excess FiO2 Sodium 136 Potassium 5.4 H Chloride 102 Carbon Dioxide 22.9 Anion Gap 11 BUN 27 H Creatinine 1.2 Estim Creat Clear Calc 38.1 L eGFR 45 L BUN/Creatinine Ratio 23 H Glucose [address] Glu mg/dL Hemoglobin A1c Calculated Osmolality 282 Lactic Acid 1.3 Calcium 10.0 Corrected Calcium 10.0 Phosphorus 3.0 Magnesium 1.6 Total Bilirubin 0.4 AST 19 ALT 11 Alkaline Phosphatase 99 Ammonia Lactate Dehydrogenase 253 H Troponin I < 0.002 B-Natriuretic Peptide 52 Total Protein 8.0 Albumin 4.3 Globulin 3.7 H Albumin/Globulin Ratio 1.2 Triglycerides Cholesterol LDL Cholesterol, Calc HDL Cholesterol Cholesterol/HDL Ratio Lipase 27 Vitamin B12 Procalcitonin 0.07 TSH Free T4 Ur Collection Type Clean Catch Urine Color Colorless A Urine Clarity Clear Urine pH 6.0 Ur Specific [place] 1.008 Urine Protein Negative Urine Glucose (UA) Negative Urine Ketones Negative Urine Blood Negative Urine Nitrite Negative Urine Bilirubin Negative Urine Urobilinogen (Auto) Negative Ur Leukocyte Esterase Negative Urine RBC 1 Urine WBC < 1 Ur Squamous Epith Cells < 1 Urine Bacteria Rare Ur Culture Indicated? Not Indicated 01/06/25 01/07/25 01/07/25 19:59 01:21 04:16 WBC 16.9 H RBC 4.10 Hgb 12.2 Hct 36.9 MCV 90 MCH 29.8 MCHC 33.1 RDW Std Deviation 42.6 Plt Count 319 Neut % (Auto) 84 H Lymph % (Auto) 11 [place] % (Auto) 4 Eos % (Auto) 0 Baso % (Auto) 0 Neut # (Auto) 14.2 H Lymph # (Auto) 1.8 [place] # (Auto) 0.7 Eos # (Auto) 0.0 Baso # (Auto) 0.1 Immature Gran # (Auto) 0.11 H Absolute Nucleated RBC 0.00 Immature Gran % 1 H Nucleated RBC % 0 PT INR APTT Puncture Site Right Radial ABG pH 7.40 ABG pCO2 39 ABG pO2 108 ABG HCO3 24 ABG O2 Saturation 99 H ABG Base Excess -1 FiO2 21 Sodium 141 Potassium 3.8 D Chloride 105 Carbon Dioxide 22.7 Anion Gap 13 BUN 24 H Creatinine 1.1 Estim Creat Clear Calc 41.8 L eGFR 50 L BUN/Creatinine Ratio 22 H Glucose [address] Glu mg/dL 134 H Hemoglobin A1c 6.3 H Calculated Osmolality 290 Lactic Acid Calcium 10.3 Corrected Calcium 10.3 H Phosphorus 3.2 Magnesium 1.6 Total Bilirubin 0.2 L AST 11 ALT < 7 L Alkaline Phosphatase 94 Ammonia 22 Lactate Dehydrogenase Troponin I B-Natriuretic Peptide Total Protein 7.4 Albumin 4.0 Globulin 3.4 Albumin/Globulin Ratio 1.2 Triglycerides 120 Cholesterol 120 L LDL Cholesterol, Calc 62 HDL Cholesterol 34 L Cholesterol/HDL Ratio 3.5 L Lipase Vitamin B12 563 Procalcitonin TSH 0.56 Free T4 1.14 Ur Collection Type Urine Color Urine Clarity Urine pH Ur Specific [place] Urine Protein Urine Glucose (UA) Urine Ketones Urine Blood Urine Nitrite Urine Bilirubin Urine Urobilinogen (Auto) Ur Leukocyte Esterase Urine RBC Urine WBC Ur Squamous Epith Cells Urine Bacteria Ur Culture Indicated? ABG Interpretation ABG results: 01/06/25 19:59 ABG pH 7.40 ABG pCO2 39 ABG pO2 108 ABG HCO3 24 ABG O2 Saturation 99 H ABG Base Excess -1 Quality Measures Quality Measures stroke Suspected type of Stroke: Unknown at this time Tenecteplase given: Reason(s) Tenecteplase not given: Outside the time window not given Rehab services: PT evaluation ordered VTE Prophylaxis: mechanical Antithrombotic by day 2:: ordered Statin ordered: >75 y/o moderate or high intensity dose Anticoagulation ordered for A-fib or flutter (current or hx): not indicated Advance care planning discussed with:: child Assessment & Plan Assessment Current Active Medications: Generic Name Dose Route Start Last Admin Trade Name Freq PRN Reason Stop Dose Admin Acetaminophen 650 mg 01/06/25 21:36 Acetaminophen 325 Mg Tablet PO 02/05/25 21:35 Q6H PRN PAIN SCALE 1-3 (mild Acetaminophen 650 mg 01/06/25 21:36 Acetaminophen 325 Mg Tablet PO 02/05/25 21:35 Q6H PRN Fever >100.4 Albuterol/Ipratropium 3 ml 01/07/25 01:00 01/07/25 07:32 Albuterol/Ipratropium (Duoneb) Rt Holly 3 Ml Nebu INH 02/06/25 00:59 3 ml Q6HRRT MATT Administration Aspirin 81 mg 01/07/25 09:00 01/07/25 09:24 Aspirin Ec 81 Mg Tabec PO 02/06/25 08:59 81 mg QDAY MTAT Administration Atorvastatin Calcium 80 mg 01/07/25 21:00 Atorvastatin Calcium 20 Mg Tablet PO 02/06/25 20:59 HS MATT Dextrose 25 ml 01/06/25 21:42 Dextrose 50%-Water Inj 50 Ml Syringe IV 02/05/25 21:41 Q15MIN PRN BG 50-70 responsive npo pt Dextrose 50 ml 01/06/25 21:42 Dextrose 50%-Water Inj 50 Ml Syringe IV 02/05/25 21:41 Q15MIN PRN BG <50 OR BG <70 & pt unresponsive Glucagon 1 mg 01/06/25 21:42 Glucagon Inj 1 Mg Vial IM Q15MIN PRN BG <70, and no IV access Insulin Glargine 20 unit 01/07/25 21:00 Insulin Glargine (Lantus) 5 Unit/0.05 Ml (Per 5 Units) SC 02/06/25 20:59 HS [facility] Insulin Human Lispro 0 unit 01/07/25 07:30 01/07/25 11:30 Insulin Lispro (Admelog) 1 Unit/0.01 Ml Unit SC 02/06/25 07:29 Not Given ACHS [facility] Protocol Isosorbide Dinitrate 20 mg 01/07/25 06:00 01/07/25 05:42 Isosorbide Dinitrate 10 Mg Tablet PO 02/06/25 05:59 20 mg QID MATT Administration Labetalol HCl 10 mg 01/06/25 21:36 01/06/25 23:21 Labetalol Inj 5 Mg/Ml Vial 20 Ml IVP 02/05/25 21:35 10 mg Q6H PRN Administration BP >220/110 Ondansetron HCl 4 mg 01/06/25 21:36 Ondansetron Inj 2 Mg/Ml Inj 2 Ml IV 02/05/25 21:35 Q6H PRN NAUSEA OR VOMITING Protocol Pantoprazole Sodium 40 mg 01/07/25 09:00 01/07/25 09:24 Pantoprazole Inj 40 Mg Vial IVP 02/06/25 08:59 40 mg QDAY MATT Administration Thiamine HCl 100 mg 01/07/25 09:00 01/07/25 09:24 Thiamine Inj 100 Mg/Ml Vial 2 Ml IVP 01/10/25 08:59 100 mg QDAY MTAT Administration Plan 84-year-old female with PMHx of hemorrhagic CVA with left-sided deficit 2021, COPD on HS oxygen, HTN, T2DM, presenting with altered mental status. Admitted for acute encephalopathy in settings of stroke and upper respiratory infection. #Acute encephalopathy #Acute L temporal lobe infarct #Hemorrhagic CVA 2021, left-sided deficit Coming from SNF, found altered this a.m., unable to recognize family members. Hx hemorrhagic CVA 2021 with residual left-sided weakness and facial droop. Neuroexam demonstrated residual findings above, no S/S of right-sided deficits or acute facial asymmetry, speech abnormality, or visual acuity changes. CT head showed left upper lobe infarct. EKG sinus with occasional SVC. Teleneuro started, recommendations as below Speech eval recommends pureed diet A1c 6.3, TG 120, Cholesterol 120, LDL 64, HDL 32, TSH 0.56 FT4 1.14 MRI completed pending read Plan: Neurology, Dr. Multani, consulted - appreciate recommendations Pending EEG and TTE w/ bubble Continue aspirin 81 mg daily Head elevation >30 degrees Permissive hypertension Continue labetalol 10 mg for BP >220/110 Temperature control Pending physical therapy evaluation #Bronchitis, ruled out #COPD Had upper respiratory infection at [facility], has been on azithromycin and prednisone (2 days). As persistent cough with aranda sputum, shortness of breath, coarse breath sounds and rhonchi on exam. Met 3/4 SIRS criteria with leukocytosis, tachycardia, tachypnea. CXR showed bronchitis pattern Currently on 2L NS, satting in mid-high 90s. Low concern for COPD exacerbation, no wheezing on exam Plan: Discontinued antibiotics Continue DuoNebs q6h #CHF, unknown EF at this time Per SNF, no recent ECHO on file. Home medications include entresto BID, aldactone 25 mg daily Plan: Hold home medications; will restart when appropriate Pending TTE w/ bubble as above #Angina, stable Currently denies chest pain On scheduled isosorbide QID at SNF Plan: Patient was given one dose Holding at this time; will restart when appropriate #Insulin-dependent Type 2 Diabetes Mellitus A1c of 6.3 Takes Lantus 50 units HS daily Plan: Started Lantus 20 units HS SSI Carb-consistent diet #Hypertension Allowing permissive hypertension as above Plan: Restart antihypertensives when appropriate #Chronic venous stasis #Stasis Ulcer #Diabetic neuropathy Home meds include gabapentin 100 mg BID and norco 5?325 q.6h. PRN. Reticular, erythematous and blachable rash noted on b/l shins Plan: Will consider restarting gabapentin and norco for 01/08/2025 Wound care consulted - appreciate recommendations #History of bilateral DVT Per SNF, occurred greater than 1 year ago Plan: Continue with SCDs Recommendation from Dr. Multani pending Health Management: Bowel: Senna Diet: NPO GI prophylaxis: Not needed DVT prophylaxis: SCD Dispo: Pending imaging studies, neurology recommendations Code: Full Patient seen and examined with attending Dr. Healy and senior resident Dr. Jeremie Ruggiero, PGY-1 Attending Provider Attestation/Addendum Sarah Juarez, DO, attest that I was physically present for the alvarez portions of the service and evaluated the patient with the resident and I reviewed and discussed the case with the resident and agree with the resident's findings and plans of care as documented above Patient seen and evaluated this AM. Patient is alert and oriented x1. She states she knows where she is, but unable to elaborate and only able to follow some commands. Patient has 3+/5 MS in RUE, 2/5 in LUE and 3+/5 MS in b/l LE. She has mild facial droop on the left. B/l LE has erythematous and crusted over b/l shins. Patient states that she is mostly bed bound. Pending MRi and rest of stroke workup.
--- NOTE | 2025-01-07 14:23 | PC.SS ---
Rounding note: pending MRI and Dr. [place] consult.
[2025-01-07] MEDS: ATORVASTATIN CALCIUM 20 MG TABLET 80 MG PO (21:28)
[2025-01-07] MEDS: INSULIN GLARGINE (Lantus) 5 UNIT/0.05 ML (PER 5 UNITS) 20 UNIT SC (21:29)
--- NOTE | 2025-01-07 21:40 | ECHO_ITS ---
Transthoracic Echo Report Ht (in): 61 Wt (lb): 212 Exam Location: Echo Lab Status: Inpatient Store Operations Specialist: SAMMY Clay^^^^ Indications: Procedure Performed: BP: 139 / 72 HR: 78 Technical Quality: Very technically difficult study MEASUREMENTS (Male / Female) Normal Values DOPPLER AV Peak Velocity 134.0 cm/s AV Peak Gradient 7.2 mmHg AV Mean Gradient 4.0 mmHg AV Velocity Time Integral 27.0 cm AI Peak Velocity 130.0 cm/s AI Peak Gradient 6.8 mmHg AI Pressure Half Time 655.0 ms LVOT Peak Velocity 106.0 cm/s LVOT Peak Gradient 4.5 mmHg LVOT Velocity Time Integral 24.7 cm MV Area PHT 2.5 cm? Mitral E Point Velocity 66.5 cm/s Mitral A Point Velocity 82.5 cm/s Mitral E to A Ratio 0.8 FINDINGS Left Ventricle The left ventricular ejection fraction is normal, estimated at 55-60%. There is grade I diastolic dysfunction of the left ventricle (impaired relaxation pattern). Right Ventricle The right ventricle not well visualized. Left Atrium Normal left atrial size. Right Atrium Right atrium is not well visualized. Atrial Septum The interatrial septum not well visualized. Aorta The aortic root and proximal ascending aorta are not well visualized. Mitral Valve Mild mitral regurgitation. Aortic Valve Mild aortic valve regurgitation. Tricuspid Valve The tricuspid valve is not well visualized. Pulmonic Valve The pulmonic valve is not well visualized. Vessels Inferior vena cava not well visualized. Pericardium The pericardium is normal to two-dimensional and color flow Doppler interrogation. CONCLUSIONS indication: Stroke, Bubble Study Patient refused to cooperate, refused bubble study, limited study completed Normal left ventricular size and function. Approximate ejection fraction is 55-60%. Trace mitral and trace tricuspid regurgitation No wall motion abnormalities No evidence of cardiac source of embolus Siria Damon (Electronically Signed) Final Date: 07 January 2025 16:46
--- NOTE | 2025-01-07 23:48 | PD.NEUROPROG ---
Documentation for date of: 01/07/25 Subjective Subjective Interval history: Patient was seen in telemetry today at the bedside. She continues to have worsening residual left-sided weakness including face arm and leg. She stated that she has worsening back pain and hard to sit up in bed even with help. Exam - Neurology Vital Signs Temp Pulse Resp BP Pulse Ox O2 Del Method O2 Flow Rate 96.9 F 61 15 163/57 H 97 Nasal Cannula 2 01/07/25 20:00 01/07/25 20:00 01/07/25 20:00 01/07/25 20:00 01/07/25 20:00 01/07/25 20:00 01/07/25 20:00 Narrative Exam GENERAL APPEARANCE: Well developed, obese built female in no acute distress. HEENT: Normocephalic, atraumatic, extraocular movements intact. Pupils: Equal reacting to light and accommodation NECK: Supple, no JVD or bruits. CARDIOVASULAR: Heart: S1, S2 heard, regular without S3-S4 or murmur no rubs or gallops. LUNGS/CHEST: Clear to auscultation bilaterally. No rails, rhonchi, or wheezing. Normal inspection. ABDOMEN: Soft, nontender, with normal bowel sounds. No pulsatile masses. No rebound, rigidity, or guarding. Normal inspection and palpation. EXTREMITIES: Normal inspection and palpation. No edema, clubbing or cyanosis. SKIN: she has dermatitis with eczematous like rashes in both LE MUSCULOSKELETAL: No cervical, thoracic, lumbar or midline bony tenderness. Normal inspection. NEURO: Alert, awake and oriented x3. Cranial nerves: II through XII grossly intact with left facial weakness of UMN type. Speech and language: Normal with no dysarthria or dysphasia. Motor system: Tone and bulk: Normal: Strength: Noted left hemiparesis including face arm and leg.; Mild pronator drift noted. Deep tendon reflexes: 2+ bilaterally symmetrical. Plantar reflex: Downgoing bilaterally. Sensory system: Intact to all modalities of sensation bilaterally. Coordination: Intact to [id number] test bilaterally. No ataxia, no dysmetria, or dysdiadochokinesia noted. Some action/fine tremors noted. Gait: Not tested. No signs of meningeal irritation noted. PSYCHIATRIC: Normal mood and affect. Constitutional Comments: Objective Labs 01/07/25 04:16 01/07/25 04:16 Labs: Laboratory Results - last 24 hr 01/07/25 01/07/25 01:21 04:16 WBC 16.9 H RBC 4.10 Hgb 12.2 Hct 36.9 MCV 90 MCH 29.8 MCHC 33.1 RDW Std Deviation 42.6 Plt Count 319 Neut % (Auto) 84 H Lymph % (Auto) 11 [place] % (Auto) 4 Eos % (Auto) 0 Baso % (Auto) 0 Neut # (Auto) 14.2 H Lymph # (Auto) 1.8 [place] # (Auto) 0.7 Eos # (Auto) 0.0 Baso # (Auto) 0.1 Immature Gran # (Auto) 0.11 H Absolute Nucleated RBC 0.00 Immature Gran % 1 H Nucleated RBC % 0 Sodium 141 Potassium 3.8 D Chloride 105 Carbon Dioxide 22.7 Anion Gap 13 BUN 24 H Creatinine 1.1 Estim Creat Clear Calc 41.8 L eGFR 50 L BUN/Creatinine Ratio 22 H Glucose [address] Glu mg/dL 134 H Hemoglobin A1c 6.3 H Calculated Osmolality 290 Calcium 10.3 Corrected Calcium 10.3 H Phosphorus 3.2 Magnesium 1.6 Total Bilirubin 0.2 L AST 11 ALT < 7 L Alkaline Phosphatase 94 Ammonia 22 Total Protein 7.4 Albumin 4.0 Globulin 3.4 Albumin/Globulin Ratio 1.2 Triglycerides 120 Cholesterol 120 L LDL Cholesterol, Calc 62 HDL Cholesterol 34 L Cholesterol/HDL Ratio 3.5 L Vitamin B12 563 TSH 0.56 Free T4 1.14 ABG Interpretation ABG results: 01/06/25 19:59 ABG pH 7.40 ABG pCO2 39 ABG pO2 108 ABG HCO3 24 ABG O2 Saturation 99 H ABG Base Excess -1 Assessment & Plan Additional Assessment & Plan Additional Plan: (1) Old CVA? residual left-sided weakness noted.? She does have diabetic ulcer and peripheral vascular disease with neurological complications. We will consider doing EMG nerve conduction study of both lower extremities to evaluate for the severity of neuropathy. Continue with the gabapentin for symptomatic therapy (2) Recurrent CVA ?based on the MRI brain with left temporal infarction, even though she is not symptomatic. Added plavix 75 mg for additional prophylaxis (3) Hypertension: ?Continue with the current management: amlodipine, spironolactone and hydralazine (4) Hyperlipidemia: ?Continue with statin (5) Diabetes: ?Continue to monitor the fingerstick glucose closely and follow sliding scale insulin per protocol
[2025-01-08] VITALS (9 sets, daily range): BP systolic 128–159; BP diastolic 43–74; PULSE 56–80; RESP 17–23; TEMP 35.9–36.2; O2SAT 95–99; BMI 43.6
--- NOTE | 2025-01-08 02:32 | RESP.EEG ---
EEG COMPLETED AND READY FOR REVIEW.
[2025-01-08 06:36] LABS: Basophils # (Auto) 0.1 Thou/mm3 (0.0-0.2); Basophils % (Auto) 1 % (0-2.5); Eosinophils # (Auto) 0.3 Thou/mm3 (0.0-0.5); Eosinophils % (Auto) 2 % (0-10); Hematocrit 35.6 % (36.0-46.0); Hemoglobin 11.5 g/dL (12.0-16.0); Immature Granulocytes % (Auto) 1 % (0-0); Immature Granulocytes Auto 0.07 Thou/mm3 (0.00-0.00); Lymphocytes # (Auto) 3.1 Thou/mm3 (1.0-4.8); Lymphocytes % (Auto) 20 % (10-50); Mean Corpuscular HGB Conc 32.3 g/dl (31.0-37.0); Mean Corpuscular Hemoglobin 29.6 pg (25.0-35.0); Mean Corpuscular Volume 92 fL (80-100); Monocytes # (Auto) 0.8 Thou/mm3 (0.0-0.8); Monocytes % (Auto) 5 % (0-12); Neutrophils # (Auto) 11.1 Thou/mm3 (1.8-7.7); Neutrophils % (Auto) 72 % (37-80); Nucleated Red Blood Cell % 0 /100 WBC (0); Platelet Count 272 Thou/mm3 (140-440); RDW Standard Deviation 44.9 fL (36.4-46.3); Red Blood Count 3.88 Miln/mm3 (4.00-5.20); White Blood Count 15.4 Thou/mm3 (3.6-11.0)
[2025-01-08] MEDS: ALBUTEROL/IPRATROPIUM (Duoneb) RT SOL 3 ML NEBU INH ×3 (06:38→19:25)
[2025-01-08 07:24] LABS: Alanine Aminotransferase 8 U/L (10-49); Albumin, Serum 3.7 gm/dL (3.4-4.8); Albumin/Globulin Ratio 1.2 (1.2-2.2); Alkaline Phosphatase 82 U/L (46-116); Anion Gap 9 (7-16); Aspartate Amino Transferase < 10 U/L (0-34); BUN/Creatinine Ratio 25 Ratio (12-20); Bilirubin,Total 0.3 mg/dL (0.3-1.2); Blood Urea Nitrogen 25 mg/dL (9-23); Calcium 9.7 mg/dL (8.3-10.6); Calcium (Corrected) 9.9 mg/dL (8.5-10.1); Carbon Dioxide 25.7 mMol/L (20.0-31.0); Chloride 105 mMol/L (98-107); Estimated Creatinine Clearance 48.3 mL/min (>60); Glucose 108 mg/dL (74-106); Magnesium 2.4 mg/dL (1.6-2.6); Osmolality,Calculated 284 (275-295); Phosphorous 3.6 mg/dL (2.4-5.1); Potassium 3.6 mMol/L (3.4-5.1); Sodium 140 mMol/L (136-145); Total Protein 6.7 gm/dL (5.7-8.2); eGFR 56 See Note
[2025-01-08] MEDS: CLOPIDOGREL BISULFATE 75 MG TABLET PO (09:33)
[2025-01-08] MEDS: ASPIRIN EC 81 MG TABEC PO (09:33)
[2025-01-08] MEDS: THIAMINE INJ 100 MG/ML VIAL 2 ML IVP (09:33)
--- NOTE | 2025-01-08 14:57 | PD.RESPRO ---
Documentation for date of: 01/08/25 Subjective Subjective Interval history: No smoking events overnight. WBC downtrending from 17-15. MRI showed large acute left temporal left occipital infarct. Echocardiogram was completed, patient refused bubble study, imaging indicated no source of embolus normal LV function. Neurologist Dr Multani reviewed MRI and echo, recommended no further CTA and added Plavix. Neurology will also perform EMG in outpatient setting for neuropathy. Updated family member including son at bedside regarding patient. Anticipating to discharge patient within 24 to 48 hours. Exam Vital Signs Temp Pulse Resp BP Pulse Ox O2 Del Method O2 Flow Rate 96.8 F 64 18 142/43 H 99 Nasal Cannula 2 01/08/25 08:00 01/08/25 13:28 01/08/25 13:28 01/08/25 08:00 01/08/25 13:28 01/08/25 08:00 01/08/25 13:28 Narrative Exam Physical Exam: GENERAL: Awake, answers questions with 1-2 words, appears stated age HEENT: NC/AT. Moist mucosa. PERRLA/EOMI. Left facial droop noted. CARDIO: Heart RRR, no obvious murmurs, no JVD. PULM: No coughing or visible SOB. Lungs CTA B/L. GI: Abdomen soft, NT/ND, +BS. SKIN/MSK/EXT: Reticular, erythematous and blachable rash noted on b/l shins. No wounds/discoloration/edema/amputations. +Pedal pulses present B/L. Moves extremities x4. NEURO: Oriented x1 (person), CN 2-12 intact, RUE/RLE 4/5 strength, LUE 1/5 LLE 2/5 muscle strength, sensations intact R>L Objective Labs 01/09/25 05:39 01/09/25 05:39 Labs: Laboratory Results - last 24 hr 01/08/25 05:34 WBC 15.4 H RBC 3.88 L Hgb 11.5 L Hct 35.6 L MCV 92 MCH 29.6 MCHC 32.3 RDW Std Deviation 44.9 Plt Count 272 D Neut % (Auto) 72 Lymph % (Auto) 20 [place] % (Auto) 5 Eos % (Auto) 2 Baso % (Auto) 1 Neut # (Auto) 11.1 H Lymph # (Auto) 3.1 [place] # (Auto) 0.8 Eos # (Auto) 0.3 Baso # (Auto) 0.1 Immature Gran # (Auto) 0.07 H Absolute Nucleated RBC 0.00 Immature Gran % 1 H Nucleated RBC % 0 Sodium 140 Potassium 3.6 Chloride 105 Carbon Dioxide 25.7 Anion Gap 9 BUN 25 H Creatinine 1.0 Estim Creat Clear Calc 48.3 L eGFR 56 L BUN/Creatinine Ratio 25 H Glucose 108 H D Calculated Osmolality 284 Calcium 9.7 Corrected Calcium 9.9 Phosphorus 3.6 Magnesium 2.4 Total Bilirubin 0.3 AST < 10 ALT 8 L Alkaline Phosphatase 82 Total Protein 6.7 Albumin 3.7 Globulin 3.0 Albumin/Globulin Ratio 1.2 ABG Interpretation ABG results: 01/06/25 19:59 ABG pH 7.40 ABG pCO2 39 ABG pO2 108 ABG HCO3 24 ABG O2 Saturation 99 H ABG Base Excess -1 Quality Measures Quality Measures stroke Suspected type of Stroke: Unknown at this time Tenecteplase given: Reason(s) Tenecteplase not given: Outside the time window not given Rehab services: PT evaluation ordered VTE Prophylaxis: mechanical Antithrombotic by day 2:: contraindicated (describe) Statin ordered: >75 y/o moderate or high intensity dose Anticoagulation ordered for A-fib or flutter (current or hx): not indicated Advance care planning discussed with:: other Assessment & Plan Assessment Current Active Medications: Generic Name Dose Route Start Last Admin Trade Name Freq PRN Reason Stop Dose Admin Acetaminophen 650 mg 01/06/25 21:36 Acetaminophen 325 Mg Tablet PO 02/05/25 21:35 Q6H PRN PAIN SCALE 1-3 (mild Acetaminophen 650 mg 01/06/25 21:36 Acetaminophen 325 Mg Tablet PO 02/05/25 21:35 Q6H PRN Fever >100.4 Albuterol/Ipratropium 3 ml 01/07/25 01:00 01/08/25 13:26 Albuterol/Ipratropium (Duoneb) Rt Holly 3 Ml Nebu INH 02/06/25 00:59 3 ml Q6HRRT MATT Administration Aspirin 81 mg 01/07/25 09:00 01/08/25 09:33 Aspirin Ec 81 Mg Tabec PO 02/06/25 08:59 81 mg QDAY MATT Administration Atorvastatin Calcium 80 mg 01/07/25 21:00 01/07/25 21:28 Atorvastatin Calcium 20 Mg Tablet PO 02/06/25 20:59 80 mg HS MATT Administration Clopidogrel Bisulfate 75 mg 01/08/25 09:00 01/08/25 09:33 Clopidogrel Bisulfate 75 Mg Tablet PO 02/07/25 08:59 75 mg QDAY MATT Administration Dextrose 25 ml 01/06/25 21:42 Dextrose 50%-Water Inj 50 Ml Syringe IV 02/05/25 21:41 Q15MIN PRN BG 50-70 responsive npo pt Dextrose 50 ml 01/06/25 21:42 Dextrose 50%-Water Inj 50 Ml Syringe IV 02/05/25 21:41 Q15MIN PRN BG <50 OR BG <70 & pt unresponsive Glucagon 1 mg 01/06/25 21:42 Glucagon Inj 1 Mg Vial IM Q15MIN PRN BG <70, and no IV access Insulin Glargine 20 unit 01/07/25 21:00 01/07/25 21:29 Insulin Glargine (Lantus) 5 Unit/0.05 Ml (Per 5 Units) SC 02/06/25 20:59 20 unit HS [facility] Administration Insulin Human Lispro 0 unit 01/07/25 07:30 01/08/25 12:16 Insulin Lispro (Admelog) 1 Unit/0.01 Ml Unit SC 02/06/25 07:29 Not Given ACHS [facility] Protocol Isosorbide Dinitrate 20 mg 01/07/25 06:00 01/07/25 05:42 Isosorbide Dinitrate 10 Mg Tablet PO 02/06/25 05:59 20 mg QID MATT Administration Labetalol HCl 10 mg 01/06/25 21:36 01/06/25 23:21 Labetalol Inj 5 Mg/Ml Vial 20 Ml IVP 02/05/25 21:35 10 mg Q6H PRN Administration BP >220/110 Ondansetron HCl 4 mg 01/06/25 21:36 Ondansetron Inj 2 Mg/Ml Inj 2 Ml IV 02/05/25 21:35 Q6H PRN NAUSEA OR VOMITING Protocol Sennosides 1 tab 01/07/25 14:02 Senna Tablet PO 02/06/25 14:01 QDAY PRN CONSTIPATION Protocol Thiamine HCl 100 mg 01/07/25 09:00 01/08/25 09:33 Thiamine Inj 100 Mg/Ml Vial 2 Ml IVP 01/10/25 08:59 100 mg QDAY MATT Administration Plan 84-year-old female with PMHx of hemorrhagic CVA with left-sided deficit 2021, COPD on HS oxygen, HTN, T2DM, presenting with altered mental status. Admitted for acute encephalopathy in settings of stroke and upper respiratory infection. #Acute encephalopathy #Acute L temporal lobe infarct #Hemorrhagic CVA 2021, left-sided deficit Coming from SNF, found altered this a.m., unable to recognize family members. Hx hemorrhagic CVA 2021 with residual left-sided weakness and facial droop. Neuroexam demonstrated residual findings above, no S/S of right-sided deficits or acute facial asymmetry, speech abnormality, or visual acuity changes. CT head showed left upper lobe infarct. EKG sinus with occasional SVC. Teleneuro started, recommendations as below Speech eval recommends pureed diet A1c 6.3, TG 120, Cholesterol 120, LDL 64, HDL 32, TSH 0.56 FT4 1.14 MRI showed large acute infarct of left temporal and left occipital lobe Echocardiogram without bubble (patient declined bubble study) showed no source of embolus with normal LV function Plan: Neurology, Dr. Multani on board, recommendations are greatly appreciated Continue aspirin 81 mg daily Started Plavix 75 mg daily Head elevation >30 degrees Continue labetalol 10 mg for BP >220/110 Temperature control Pending physical therapy evaluation #Bronchitis, ruled out #COPD Had upper respiratory infection at SNF, has been on azithromycin and prednisone (2 days). As persistent cough with aranda sputum, shortness of breath, coarse breath sounds and rhonchi on exam. Met 3/4 SIRS criteria with leukocytosis, tachycardia, tachypnea. CXR showed bronchitis pattern Currently on 2L NS, satting in mid-high 90s. Low concern for COPD exacerbation, no wheezing on exam Plan: Discontinued antibiotics Continue DuoNebs q6h #CHF, unknown EF at this time Per SNF, no recent ECHO on file. Home medications include entresto BID, aldactone 25 mg daily Echocardiogram indicated normal LV function Plan: Hold home medications; will restart when appropriate #Angina, stable Currently denies chest pain On scheduled isosorbide QID at SNF Plan: Patient was given one dose Holding at this time; will restart when appropriate #Insulin-dependent Type 2 Diabetes Mellitus A1c of 6.3 Takes Lantus 50 units HS daily Plan: Started Lantus 20 units HS SSI Carb-consistent diet #Hypertension Allowing permissive hypertension as above Plan: Restarted home med spironolactone 25 mg daily #Chronic venous stasis #Stasis Ulcer #Diabetic neuropathy Home meds include gabapentin 100 mg BID and norco 5?325 q.6h. PRN. Reticular, erythematous and blachable rash noted on b/l shins Plan: Will consider restarting gabapentin and norco for 01/08/2025 Wound care consulted - appreciate recommendations #History of bilateral DVT Per SNF, occurred greater than 1 year ago Plan: Continue with SCDs Recommendation from Dr. Multani pending Health Management: Bowel: Senna Diet: NPO GI prophylaxis: Not needed DVT prophylaxis: SCD Dispo: Pending imaging studies, neurology recommendations Code: Full This patient care was discussed with my attending Dr. Monet Chao MD PGY-2 Disclaimer: Minor errors in engineer station mainline may be present since this note was dictated by speech recognition software. Attending Provider Attestation/Addendum Larry, Sarah Healy, , attest that I was physically present for the alvarez portions of the service and evaluated the patient with the resident and I reviewed and discussed the case with the resident and agree with the resident's findings and plans of care as documented above Patient seen and evaluated this AM. No acute events overnight. Family made aware of MRI findings consisting of large acute infarct of left temporal occipital lobe. Patient otherwise has no acute complaints. She is at baseline mental status. She has residual left sided weakness from previous CVA otherwise. Patient can be discharged within next 24h back to SNF. Patient is to continue DAPT and will need outpatient f/u for EMG.
--- NOTE | 2025-01-08 15:00 | PC.SS ---
Follow up note: SS spoke to Kim at [facility] who explained they will accept pt tomorrow. Kim from [facility] is requesting updated inquiry be sent. WIL has sent inquiry using [employer].
[2025-01-08] MEDS: FERROUS SULF 325 MG TABLET PO (18:29)
[2025-01-08] MEDS: GABAPENTIN 100 MG CAPSULE PO (20:45)
[2025-01-08] MEDS: ATORVASTATIN CALCIUM 20 MG TABLET 80 MG PO (20:45)
[2025-01-08] MEDS: INSULIN GLARGINE (Lantus) 5 UNIT/0.05 ML (PER 5 UNITS) 20 UNIT SC (20:51)
--- NOTE | 2025-01-08 22:30 | PD.VPROG1 ---
Telemedicine visit statement This visit was conducted with the use of phone was obtained on 01/08/25 Documentation for date of: 01/08/25 Subjective Subjective Interval history: Patient is in MedSurg, no new symptoms reported. Continues to c/o back pain with residual left hemiparesis. Moves the right upper and lower extremities well. Virtual exam Vital Signs Temp Pulse Resp BP Pulse Ox O2 Del Method O2 Flow Rate 96.8 F 70 23 H 159/61 H 95 Nasal Cannula 2 01/08/25 20:00 01/08/25 20:00 01/08/25 20:00 01/08/25 20:00 01/08/25 20:00 01/08/25 20:00 01/08/25 20:00 Objective Labs 01/08/25 05:34 01/08/25 05:34 Labs: Laboratory Results - last 24 hr 01/08/25 05:34 WBC 15.4 H RBC 3.88 L Hgb 11.5 L Hct 35.6 L MCV 92 MCH 29.6 MCHC 32.3 RDW Std Deviation 44.9 Plt Count 272 D Neut % (Auto) 72 Lymph % (Auto) 20 [place] % (Auto) 5 Eos % (Auto) 2 Baso % (Auto) 1 Neut # (Auto) 11.1 H Lymph # (Auto) 3.1 [place] # (Auto) 0.8 Eos # (Auto) 0.3 Baso # (Auto) 0.1 Immature Gran # (Auto) 0.07 H Absolute Nucleated RBC 0.00 Immature Gran % 1 H Nucleated RBC % 0 Sodium 140 Potassium 3.6 Chloride 105 Carbon Dioxide 25.7 Anion Gap 9 BUN 25 H Creatinine 1.0 Estim Creat Clear Calc 48.3 L eGFR 56 L BUN/Creatinine Ratio 25 H Glucose 108 H D Calculated Osmolality 284 Calcium 9.7 Corrected Calcium 9.9 Phosphorus 3.6 Magnesium 2.4 Total Bilirubin 0.3 AST < 10 ALT 8 L Alkaline Phosphatase 82 Total Protein 6.7 Albumin 3.7 Globulin 3.0 Albumin/Globulin Ratio 1.2 ABG Interpretation ABG results: 01/06/25 19:59 ABG pH 7.40 ABG pCO2 39 ABG pO2 108 ABG HCO3 24 ABG O2 Saturation 99 H ABG Base Excess -1 Assessment & Plan Assessment (1) Recurrent CVA ?based on the MRI brain with left temporal infarction, even though she is not symptomatic. Added plavix 75 mg for additional prophylaxis (2) Old CVA? residual left-sided weakness noted.? She does have diabetic ulcer and peripheral vascular disease with neurological complications. We will consider doing EMG nerve conduction study of both lower extremities to evaluate for the severity of neuropathy. Continue with the gabapentin for symptomatic therapy (3) Hypertension: ?Continue with the current management: amlodipine, spironolactone and hydralazine (4) Hyperlipidemia: ?Continue with statin (5) Diabetes: ?Continue to monitor the fingerstick glucose closely and follow sliding scale insulin per protocol
[2025-01-09] VITALS (9 sets, daily range): BP systolic 134–164; BP diastolic 57–90; PULSE 58–77; RESP 15–90; TEMP 36.1–36.6; O2SAT 93–99; BMI 43.6
[2025-01-09] MEDS: ALBUTEROL/IPRATROPIUM (Duoneb) RT SOL 3 ML NEBU INH ×3 (01:20→12:55)
[2025-01-09 06:26] LABS: Basophils # (Auto) 0.1 Thou/mm3 (0.0-0.2); Basophils % (Auto) 0 % (0-2.5); Eosinophils # (Auto) 0.3 Thou/mm3 (0.0-0.5); Eosinophils % (Auto) 2 % (0-10); Hematocrit 34.4 % (36.0-46.0); Hemoglobin 11.2 g/dL (12.0-16.0); Immature Granulocytes % (Auto) 0 % (0-0); Immature Granulocytes Auto 0.05 Thou/mm3 (0.00-0.00); Lymphocytes # (Auto) 2.8 Thou/mm3 (1.0-4.8); Lymphocytes % (Auto) 19 % (10-50); Mean Corpuscular HGB Conc 32.6 g/dl (31.0-37.0); Mean Corpuscular Hemoglobin 29.5 pg (25.0-35.0); Mean Corpuscular Volume 91 fL (80-100); Monocytes # (Auto) 0.8 Thou/mm3 (0.0-0.8); Monocytes % (Auto) 5 % (0-12); Neutrophils # (Auto) 11.1 Thou/mm3 (1.8-7.7); Neutrophils % (Auto) 74 % (37-80); Nucleated Red Blood Cell % 0 /100 WBC (0); Platelet Count 272 Thou/mm3 (140-440); White Blood Count 15.1 Thou/mm3 (3.6-11.0)
[2025-01-09 06:41] LABS: Alanine Aminotransferase 8 U/L (10-49); Albumin, Serum 3.7 gm/dL (3.4-4.8); Albumin/Globulin Ratio 1.3 (1.2-2.2); Alkaline Phosphatase 81 U/L (46-116); Anion Gap 8 (7-16); Aspartate Amino Transferase 10 U/L (0-34); BUN/Creatinine Ratio 23 Ratio (12-20); Bilirubin,Total 0.6 mg/dL (0.3-1.2); Blood Urea Nitrogen 23 mg/dL (9-23); Calcium 9.4 mg/dL (8.3-10.6); Calcium (Corrected) 9.6 mg/dL (8.5-10.1); Chloride 104 mMol/L (98-107); Estimated Creatinine Clearance 48.3 mL/min (>60); Globulin 2.9 gm/dL (2.3-3.5); Glucose 103 mg/dL (74-106); Osmolality,Calculated 281 (275-295); Phosphorous 3.6 mg/dL (2.4-5.1); Potassium 3.7 mMol/L (3.4-5.1); Sodium 139 mMol/L (136-145); Total Protein 6.6 gm/dL (5.7-8.2); eGFR 56 See Note
[2025-01-09] MEDS: FERROUS SULF 325 MG TABLET PO (08:38)
[2025-01-09] MEDS: ASCORBIC ACID 250 MG TABLET 500 MG PO (08:39)
[2025-01-09] MEDS: SPIRONOLACTONE 25 MG TABLET PO (08:39)
[2025-01-09] MEDS: CLOPIDOGREL BISULFATE 75 MG TABLET PO (08:43)
[2025-01-09] MEDS: GABAPENTIN 100 MG CAPSULE PO (08:43)
[2025-01-09] MEDS: THIAMINE INJ 100 MG/ML VIAL 2 ML IVP (08:44)
[2025-01-09] MEDS: ASPIRIN EC 81 MG TABEC PO (08:56)
--- NOTE | 2025-01-09 10:50 | PC.SS ---
RESEARCH CHEF set up transportation for pt to be d/c to [facility] via [facility], ETA is [phone]. #[phone]
--- NOTE | 2025-01-09 11:12 | ESDS_ITS ---
<Statement entered by Sarah Healy DO - 01/09/25 12:33> I, Sarah Healy DO, attest that I was physically present for the alvarez portions of the service and evaluated the patient with the resident and I reviewed and discussed the case with the resident and agree with the resident's findings and plans of care as documented above Planned Discharge Date 01/09/25 DS: Providers Provider Date of admission: 01/06/25 21:36 Primary care physician: Physician No Primary/Family Admitting Provider: Rafita Hazel MD Attending Provider on Admission: Rafita Hazel MD Consults: 01/06/25 20:32 Consult to Neurology / Tele-Neurology Routine Comment: Consulting Provider: [facility] 01/06/25 21:40 Referral Physical Therapy Routine Comment: Physician Instructions: Referral Speech Therapy Routine Comment: 01/07/25 07:52 Consult to Neurology / Tele-Neurology Routine Comment: Consulting Provider: Johny Multani 01/07/25 12:59 Referral Wound Care Routine Comment: Attending Provider on DC: Gonzalo Wilkins MD Discharging Provider: Gonzalo Wilkins MD DS: Diagnosis Problem List Completed Was Problem List Reviewed/Reconciled?: Yes Hospital Course Hospital Course Hospital course: An 84-year-old female with PMHx of CVA 2021 with left hemiparesis, bedbound/wheelchair-bound, history of bilateral DVT, COPD, T2DM, CHF unspecified, HTN, CKD, recent diagnosis of URI, who presented from SNF with confusion and altered mental status. According to SNF and her son at bedside, the confusion started earlier the day of admission where she was unable to recognize family members. Recently she was diagnosed with upper respiratory infection, started on steroid and azithromycin, but she has history of COPD and on night oxygen. Admitted to [facility] telemetry unit for acute encephalopathy/possible stroke workup and management. Imaging studies of the head included CT and MRI showed left temporal lobe acute stroke/left oc cipital lobe. Nephrology was consulted, who recommended start the patient on DAPT, atorvastatin, control blood pressure following acute stroke protocols, control blood sugar and follow-up with echo, which was done, showed no clinically significant acute or chronic changes including intra cardiac thrombus, but bubble study was not done per patient request. In-house neurologist also recommended the patient to follow-up in outpatient for bilateral muscle weakness further workup including EMG after discharge. During hospital stay patient also complained for upper respiratory tract infection sym ptoms including cough and some shortness of breath, we started the patient on symptomatic management and continued azithromycin and prednisone for 2 days, after which his symptoms has improved to baseline. Today patient is clinically and hemodynamically stable, labs are not clinically significant, kidney function is at baseline, A1c 6.3. Vital signs are stable. Patient will be discharged to SNF per PT recommendations to continue recovery and further management with the following recommendations. Please f/u with PCP within 1 week of discharge. Please f/u with neurology for outpatient EMG #Acute encephalopathy, resolved #Acute L temporal lobe infarct #Hemorrhagic CVA 2021, left-sided deficit #Bronchitis, ruled out #COPD # History of CHF with unknown EF (new echo is negative for acute or chronic heart failure including HFrEF/HFpEF) #Angina, stable #Insulin-dependent Type 2 Diabetes Mellitus #Hypertension #Chronic venous stasis #Stasis Ulcer #Diabetic neuropathy #History of bilateral DVT IGonzalo MD PGY 3 reviewed and discussed the case with attending physician Dr. Healy Time Spent with Patient Time attestation: Total time spent providing and/or coordinating discharge services: > 35 min Exam Vital Signs Temp Pulse Resp BP Pulse Ox O2 Del Method O2 Flow Rate 97.2 F 65 20 134/80 H 97 Room Air 2 01/09/25 08:00 01/09/25 08:39 01/09/25 08:00 01/09/25 08:39 01/09/25 08:00 01/09/25 08:00 01/09/25 07:12 Narrative Exam Physical Exam: GENERAL: Awake, answers questions with 1-2 words, appears stated age HEENT: NC/AT. Moist mucosa. PERRLA/EOMI. Left facial droop noted. CARDIO: Heart RRR, no obvious murmurs, no JVD. PULM: No coughing or visible SOB. Lungs CTA B/L. GI: Abdomen soft, NT/ND, +BS. SKIN/MSK/EXT: Reticular, erythematous and blachable rash noted on b/l shins. No wounds/discoloration/edema/amputations. +Pedal pulses present B/L. Moves extremities x4. NEURO: Oriented x1 (person), CN 2-12 intact, RUE/RLE 4/5 strength, LUE 1/5 LLE 2/5 muscle strength, sensations intact R>L Discharge Plan Plan Patient Disposition: Xfer Skilled Nsg Fac (SNF) Patient condition on transfer: Stable Prescriptions/Referrals Prescriptions/Med Rec: New atorvastatin 20 mg Tablet 40 mg PO HS 1 Days Qty: 2 0RF insulin glargine [Lantus U-100 Insulin] 100 unit/mL Solution 20 unit SCi HS Qty: 10 0RF clopidogrel 75 mg Tablet 75 mg PO QDAY 1 Days Qty: 1 0RF aspirin [Ecotrin Low Strength] 81 mg Tablet,Delayed Release (Dr/Ec) 81 mg PO QDAY 1 Days Qty: 1 0RF thiamine HCl (vitamin B1) 100 mg/mL Solution 100 mg IVP QDAY 1 Days Qty: 1 0RF Continued ipratropium-albuterol 0.5 mg-3 mg(2.5 mg base)/3 mL solution for nebulization 3 ml INHALATION TID spironolactone 25 mg tablet 25 mg PO DAILY Rx Instructions: HOLD IF SBP< 100 OR DBP <60 ferrous sulfate [Feosol] 325 mg (65 mg iron) tablet 325 mg PO .ACWM Rx Instructions: GIVE WITH MEAL ascorbic acid (vitamin C) [Vitamin C] 500 mg tablet 500 mg PO QDAY zinc 22 mg tablet 22.5 mg PO DAILY diphenhydramine HCl [Benadryl Allergy] 25 mg tablet 25 mg PO Q6H PRN (Reason: itching) acetaminophen 325 mg tablet 650 mg PO Q6H PRN (Reason: MILD PAIN OR TEMP) Rx Instructions: GIVE 2 TABLETS BY MOUTH EVERY 6 HRS NEEDED FOR MILD PAIN 1-3 OT TEMP >100.1 hydrocodone-acetaminophen 5-325 mg tablet 1 tab PO Q6H PRN (Reason: MODERATE TO SEVERE PAIN) gabapentin 100 mg capsule 100 mg PO BID Patient Comments: TAKE 1 CAPSULE BY MOUTH TWICE DAILY Held sacubitril-valsartan [Entresto] 49-51 mg tablet 1 tab PO BID Hold Instructions: f/u with pcp Rx Instructions: GIVE 1 TABLET BY MOUTH ONE TIME A DAY HOLD IS SBP<100 OR DBP< 60 Discontinued metformin 500 mg Tablet 500 mg PO BID insulin glargine [Lantus U-100 Insulin] 100 unit/mL Solution 50 unit subcut HS Rx Instructions: Hold if Blood Sugar is < 100 mg/dL Notify MD if BS < 70, or > 400 mg/dL Rotate injection sites as per facility policy prednisone 20 mg tablet 20 mg PO DAILY promethazine 6.25 mg/5 mL syrup 6.25 mg PO TID insulin glargine [Lantus Solostar U-100 Insulin] 100 unit/mL (3 mL) insulin pen 50 unit SUBCUT HS Rx Instructions: INJECT 50 SUBCUTANEOUSLY AT BEDTIME DM2, HOLD IF BLOOD SUGAR IS<100 isosorbide dinitrate 20 mg tablet 20 mg PO QID Rx Instructions: TAKE 1 TABLET BY MOUTH FOUR TIMES DAILY spironolactone 50 mg tablet 50 mg PO QDAY Patient Comments: TAKE 1 TABLET BY MOUTH ONCE DAILY hydralazine 25 mg tablet 25 mg PO TID Patient Comments: TAKE 1 TABLET BY MOUTH THREE TIMES DAILY WITH FOOD FOR HYPERTENSION amlodipine 10 mg tablet 10 mg PO QDAY Patient Comments: TAKE 1 TABLET BY MOUTH EVERY DAY No Action furosemide 40 mg tablet 40 mg PO QDAY Patient Comments: TAKE 1 TABLET BY MOUTH EVERY DAY FOR LEG SWELLING Referrals: No Primary/Family,Physician [Primary Care Provider] - Patient/Caregiver Discharge Instructions Discharge Activity: activity as tolerated Other Discharge Activity Instructions:: Please f/u with PCP within 1 week of discharge. Please f/u with neurology for outpatient EMG Print Language: Faroese Stand Alone Forms: Rachael Award Info., Patient Portal Info Letter Discharge Order Discharge Orders: Discharge (Routine); Ordered 01/09/25 Ordered By: Sarah Healy Quality Discharge Quality Measures VTE prophylaxis
--- NOTE | 2025-01-09 11:27 | PC.SS ---
DRYING EQUIPMENT OPERATOR got a call from nurse stating that pt has not had bowel movement in 48 hours so pt's d/c would need to be canceled, DRYING EQUIPMENT OPERATOR to follow up with [facility]
--- NOTE | 2025-01-09 12:23 | PC.NURSE ---
SPOKE TO RAAD COHEN AT [facility] TO GIVE DISCHARGE INSTRUCTIONS
--- NOTE | 2025-01-09 13:03 | PC.SS ---
New eta time at 1600 reference # is [id number]
--- NOTE | 2025-01-09 23:15 | VVPN_ITS ---
Telemedicine visit statement This visit was conducted with the use of phone was obtained on 01/09/25. Documentation for date of: 01/09/25 Subjective Subjective Interval history: Patient is in MedSurg, no new symptoms reported. Continues to c/o back pain with residual left hemiparesis. Moves the right upper and lower extremities well. Virtual exam Vital Signs Temp Pulse Resp BP Pulse Ox O2 Del Method O2 Flow Rate 97.9 F 72 20 164/70 H 93 L Room Air 2 01/09/25 16:00 01/09/25 16:00 01/09/25 16:00 01/09/25 16:00 01/09/25 16:00 01/09/25 16:00 01/09/25 07:12 Objective Labs 01/09/25 05:39 01/09/25 05:39 Labs: Laboratory Results - last 24 hr 01/09/25 05:39 WBC 15.1 H RBC 3.80 L Hgb 11.2 L Hct 34.4 L MCV 91 MCH 29.5 MCHC 32.6 RDW Std Deviation 44.0 Plt Count 272 Neut % (Auto) 74 Lymph % (Auto) 19 [place] % (Auto) 5 Eos % (Auto) 2 Baso % (Auto) 0 Neut # (Auto) 11.1 H Lymph # (Auto) 2.8 [place] # (Auto) 0.8 Eos # (Auto) 0.3 Baso # (Auto) 0.1 Immature Gran # (Auto) 0.05 H Absolute Nucleated RBC 0.00 Immature Gran % 0 Nucleated RBC % 0 Sodium 139 Potassium 3.7 Chloride 104 Carbon Dioxide 27.0 Anion Gap 8 BUN 23 Creatinine 1.0 Estim Creat Clear Calc 48.3 L eGFR 56 L BUN/Creatinine Ratio 23 H Glucose 103 Calculated Osmolality 281 Calcium 9.4 Corrected Calcium 9.6 Phosphorus 3.6 Magnesium 2.0 Total Bilirubin 0.6 AST 10 ALT 8 L Alkaline Phosphatase 81 Total Protein 6.6 Albumin 3.7 Globulin 2.9 Albumin/Globulin Ratio 1.3 ABG Interpretation ABG results: 01/06/25 19:59 ABG pH 7.40 ABG pCO2 39 ABG pO2 108 ABG HCO3 24 ABG O2 Saturation 99 H ABG Base Excess -1 Assessment & Plan Assessment (1) Recurrent CVA ?based on the MRI brain with left temporal infarction, even though she is not symptomatic. Added plavix 75 mg for additional prophylaxis. patient stable for discharge and I will see her in 2 weeks. (2) Old CVA? residual left-sided weakness noted.? She does have diabetic ulcer and peripheral vascular disease with neurological complications. We will consider doing EMG nerve conduction study of both lower extremities to evaluate for the severity of neuropathy. Continue with the gabapentin for symptomatic therapy (3) Hypertension: ?Continue with the current management: amlodipine, spironolactone and hydralazine (4) Hyperlipidemia: ?Continue with statin (5) Diabetes: ?Continue to monitor the fingerstick glucose closely and follow sliding scale insulin per protocol
== END 2025-01-09 16:55 | disposition skilled nursing facility (03) | DRG 64 ==
LOC: SERX 21:07 → SERHOLD 22:50 → S2NX 01-07 03:55
PROVIDERS: Admitting Provider Internal Medicine; Emergency Provider Emergency Medicine; Visit Provider Internal Medicine
DX: I63.00 Cerebral infarction due to thrombosis of unspecified precerebral artery (principal); G93.41 Metabolic encephalopathy; J18.9 Pneumonia, unspecified organism; I69.354 Hemiplegia and hemiparesis following cerebral infarction affecting left non-dominant side; I13.0 Hypertensive heart and chronic kidney disease with heart failure and stage 1 through stage 4 chronic kidney disease, or unspecified chronic kidney disease; J44.0 Chronic obstructive pulmonary disease with (acute) lower respiratory infection; I50.9 Heart failure, unspecified; E11.40 Type 2 diabetes mellitus with diabetic neuropathy, unspecified; E87.5 Hyperkalemia; I87.8 Other specified disorders of veins; E11.622 Type 2 diabetes mellitus with other skin ulcer; R29.810 Facial weakness; I20.9 Angina pectoris, unspecified; N18.9 Chronic kidney disease, unspecified; E11.22 Type 2 diabetes mellitus with diabetic chronic kidney disease; E11.65 Type 2 diabetes mellitus with hyperglycemia; E78.5 Hyperlipidemia, unspecified; R00.1 Bradycardia, unspecified; E11.51 Type 2 diabetes mellitus with diabetic peripheral angiopathy without gangrene; M54.9 Dorsalgia, unspecified; L98.499 Non-pressure chronic ulcer of skin of other sites with unspecified severity; Z79.84 Long term (current) use of oral hypoglycemic drugs; Z79.899 Other long term (current) drug therapy; Z86.718 Personal history of other venous thrombosis and embolism; Z99.3 Dependence on wheelchair; Z74.01 Bed confinement status; Z79.4 Long term (current) use of insulin; Z79.82 Long term (current) use of aspirin; Z11.52 Encounter for screening for COVID-19; Z99.81 Dependence on supplemental oxygen; R29.709 NIHSS score 9
CPT/HCPCS: 36415; 36600; 70450; 70551; 71045; 80053; 80061; 81001; 82140; 82607; 82746; 82803; 83036; 83605; 83615; 83690; 83735; 83880; 84100; 84145; 84439; 84443; 84484; 85025; 85610; 85730; 87040; 87081; 87086; 87205; 87811; 89220; 92526; 92610; 93306; 94640; 95816; 97163; A9270; J0456; J0612; J0696; J1815; J2470; J3411; J3475; J3490; J7040; J7050; J1920